=== PATIENT | male | born 1980 | race African-American/Black ===

== ENCOUNTER 2017-04-18 15:56 | Emergency (ER) | payer SELFPAY ==
[~2017-04-18] VITALS: Ht 182.9 cm; Wt 80.0 kg
[~2017-04-18 15:56] MED LIST: METH750T2 PO; NAPR40TA PO
[2017-04-18 16:14] VITALS: BP 135/85; PULSE 110; RESP 17; O2SAT 95
[2017-04-18 16:21] VITALS: TEMP 97.9
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
[2017-04-18] MEDS ORDERED: TETANUS/DIPHTHERIA TOXOID ADULT 0.5 ML VIAL IM ONE (16:30)
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
[2017-04-18 17:36] LABS: AUTOMATED NEUTROPHIL # 2.4 TH/MM3 (1.8-7.7); BASOPHIL % 0.6 % (0.0-2.0); EOSINOPHIL # 0.1 TH/MM3 (0-0.4); EOSINOPHIL % 1.5 % (0.0-4.0); HEMATOCRIT 41.9 % (39.0-51.0); HEMO FLAGS DIFF FINAL; LYMPH % 44.3 % (9.0-44.0); LYMPHOCYTE # 2.4 TH/MM3 (1.0-4.8); MEAN CELL VOLUME 99.2 FL (80.0-100.0); MEAN CORPUSCULAR HEMOGLOBIN 32.6 PG (27.0-34.0); MEAN CORPUSCULAR HGB CONC 32.9 % (32.0-36.0); MONO % 9.6 % (0.0-8.0); PLATELET COUNT 154 TH/MM3 (150-450); RED BLOOD COUNT 4.23 MIL/MM3 (4.50-5.90); WHITE BLOOD COUNT 5.5 TH/MM3 (4.0-11.0)
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
[2017-04-18 17:45] LABS: APTT (PATIENT) 27.3 SEC (24.3-30.1); PROTHROMBIN TIME - PATIENT 10.7 SEC (9.8-11.6)
[2017-04-18 18:08] LABS: BICARBONATE 28.7 MEQ/L (21.0-32.0)
[2017-04-18] MEDS ORDERED: ACETAMINOPHEN 500 MG CPLT PO ONE (18:45)
[2017-04-18 20:33] VITALS: BP 120/63; PULSE 81; RESP 16; O2SAT 96
[2017-04-19 00:10] VITALS: BP 95/53; PULSE 89; RESP 16; O2SAT 92
== END 2017-04-19 03:39 | disposition home or self-care (01) ==
LOC: NEPD 15:56
DX: S01.511A Laceration without foreign body of lip, initial encounter (principal); S01.81XA Laceration without foreign body of other part of head, initial encounter; F10.129 Alcohol abuse with intoxication, unspecified; I10 Essential (primary) hypertension; F17.200 Nicotine dependence, unspecified, uncomplicated; V18.4XXA Pedal cycle driver injured in noncollision transport accident in traffic accident, initial encounter
CPT/HCPCS: 12013; 70450; 70486; 71010; 72125; 72128; 72131; 73552; 73590; 80048; 80307; 85025; 85610; 85730; 90471; 90714

== ENCOUNTER 2017-05-19 19:00 | Inpatient (IN) | payer SELFPAY ==
[~2017-05-19] VITALS: Ht 182.9 cm; Wt 97.5 kg
[2017-05-19 00:40] VITALS: BP 139/99; PULSE 68; RESP 19; TEMP 96.1; O2SAT 97
[2017-05-19] MEDS ORDERED: SODIUM CHLORIDE 0.9% FLUSH 10 ML FLUSH IVF PRN (19:15)
[2017-05-19 19:20] VITALS: BP 188/91; PULSE 105; RESP 24; TEMP 98.4; O2SAT 91
--- NOTE | 2017-05-19 19:20 | PD ---
HPI Chief Complaint: SOB Time Seen by Provider: 19:13 Travel History International Travel<30 days: No Contact w/Intl Traveler<30days: No Traveled to known affect area: No History of Present Illness HPI C/O SOB ALL DAY, DENIES H/O ASTHMA, BUT DOES SMOKE 1PPD, SHARP PAIN DEVELOPED THIS MORNING WELL....DENIES ANY TRAUMA AT ALL. PFSH Past Medical History Diminished Hearing: No Hypertension: Yes Social History Alcohol Use: Yes (daily) Tobacco Use: Yes (1/2 PPD) Substance Use: No Allergies-Medications (Allergen,Severity, Reaction): Coded Allergies: Morphine (Verified Allergy, Severe, HIVES, 05/19/17) Reported Meds & Prescriptions Reported Meds & Active Scripts Active No Active Prescriptions or Reported Medications Review of Systems Except as stated in HPI: all other systems reviewed are Neg Cardiovascular: Positive: Chest Pain or Discomfort Respiratory: Positive: Cough, Shortness of Breath, Wheezing Physical Exam Narrative GENERAL: SKIN: Warm and dry. HEAD: Atraumatic. Normocephalic. EYES: Pupils equal and round. No scleral icterus. No injection or drainage. ENT: No nasal bleeding or discharge. Mucous membranes pink and moist. NECK: Trachea midline. No JVD. CARDIOVASCULAR: Regular rate and rhythm. RESPIRATORY: accessory muscle use. RIGHT SIDE NO LUNG SOUNDS, TRACHEA SHIFTED RIGHT, LEFT LUNG MILD WHEEZES BUT OTHERWISE GREAT TV GASTROINTESTINAL: Abdomen soft, non-tender, nondistended. MUSCULOSKELETAL: Extremities without clubbing, cyanosis, or edema. No obvious deformities. NEUROLOGICAL: Awake and alert. No obvious cranial nerve deficits. Motor grossly within normal limits. Five out of 5 muscle strength in the arms and legs. Normal speech. PSYCHIATRIC: Appropriate mood and affect; insight and judgment normal. Data Data Last Documented VS Vital Signs Date Time Temp Pulse Resp B/P Pulse Ox O2 Delivery O2 Flow Rate FiO2 05/19/17 21:05 22 05/19/17 20:44 92 153/92 97 Nasal Cannula 3 05/19/17 19:20 98.4 Orders Electrocardiogram (05/19/17 19:14) B-Type Natriuretic Peptide (05/19/17 19:14) Ckmb (Isoenzyme) Profile (05/19/17 19:14) Complete Blood Count With Diff (05/19/17 19:14) Comprehensive Metabolic Panel (05/19/17 19:14) D-Dimer (05/19/17 19:14) Prothrombin Time / Inr (Pt) (05/19/17 19:14) Act Partial Throm Time (Ptt) (05/19/17 19:14) Troponin I (05/19/17 19:14) Lipase (05/19/17 19:14) Chest, Single Ap (05/19/17 19:14) Ecg Monitoring (05/19/17 19:14) Bilateral Bp Monitoring (05/19/17 19:14) Iv Access Insert/Monitor (05/19/17 19:14) Oximetry (05/19/17 19:14) Oxygen Administration (05/19/17 19:14) Sodium Chloride 0.9% Flush (Ns Flush) (05/19/17 19:15) Lidocaine 2% Inj (Xylocaine 2% Inj) (05/19/17 19:25) Hydromorphone Pf Inj (Dilaudid Pf Inj) (05/19/17 19:41) Ondansetron Inj (Zofran Inj) (05/19/17 19:41) Lidocai-Epi 1%-1:100,000 Inj (Xylocaine- (05/19/17 19:48) Chest, Single Ap (05/19/17 ) CKMB (05/19/17 19:30) CKMB% (05/19/17 19:30) Hydromorphone Pf Inj (Dilaudid Pf Inj) (05/19/17 21:00) Ondansetron Inj (Zofran Inj) (05/19/17 21:00) Admit To Inpatient (05/19/17 ) Vital Signs (Adult) Q4H (05/19/17 21:07) Activity Oob With Assistance (05/19/17 21:07) Marketing Development Representative / Telemetry .CONTINUOUS (05/19/17 21:07) Diet Heart Healthy (05/20/17 Breakfast) Sodium Chloride 0.9% Flush (Ns Flush) (05/19/17 21:15) Sodium Chloride 0.9% Flush (Ns Flush) (05/20/17 09:00) Case Management Consult (05/19/17 21:07) Naloxone Inj (Narcan Inj) (05/19/17 21:15) Inpatient Certification (05/19/17 ) Consult Cardiothoracic Surgery (05/19/17 ) Consult Cardiothoracic Surgery (05/19/17 ) Admit Order (Ed Use Only) (05/19/17 21:14) (Hub Use Only)Inp Phy Cons/Ref (05/19/17 ) Labs Laboratory Tests Test 05/19/17 19:30 White Blood Count 7.2 TH/MM3 Red Blood Count 4.55 MIL/MM3 Hemoglobin 15.2 GM/DL Hematocrit 45.0 % Mean Corpuscular Volume 98.8 FL Mean Corpuscular Hemoglobin 33.5 PG Mean Corpuscular Hemoglobin 33.8 % Concent Red Cell Distribution Width 13.1 % Platelet Count 252 TH/MM3 Mean Platelet Volume 7.4 FL Neutrophils (%) (Auto) 50.3 % Lymphocytes (%) (Auto) 37.4 % Monocytes (%) (Auto) 9.4 % Eosinophils (%) (Auto) 2.3 % Basophils (%) (Auto) 0.6 % Neutrophils # (Auto) 3.6 TH/MM3 Lymphocytes # (Auto) 2.7 TH/MM3 Monocytes # (Auto) 0.7 TH/MM3 Eosinophils # (Auto) 0.2 TH/MM3 Basophils # (Auto) 0.0 TH/MM3 CBC Comment DIFF FINAL Differential Comment Prothrombin Time 11.2 SEC Prothromb Time International 1.0 RATIO Ratio Activated Partial 29.9 SEC Thromboplast Time D-Dimer Quantitative (PE/DVT) 1.01 MG/L FEU Sodium Level 136 MEQ/L Potassium Level 3.5 MEQ/L Chloride Level 103 MEQ/L Carbon Dioxide Level 22.0 MEQ/L Anion Gap 11 MEQ/L Blood Urea Nitrogen 9 MG/DL Creatinine 1.03 MG/DL Estimat Glomerular Filtration 97 ML/MIN Rate Random Glucose 100 MG/DL Calcium Level 8.7 MG/DL Total Bilirubin 0.9 MG/DL Aspartate Amino Transf 31 U/L (AST/SGOT) Alanine Aminotransferase 52 U/L (ALT/SGPT) Alkaline Phosphatase 71 U/L Total Creatine Kinase 193 U/L Creatine Kinase MB LESS THAN 0.5 NG/ML Troponin I LESS THAN 0.02 NG/ML B-Type Natriuretic Peptide 47 PG/ML Total Protein 8.3 GM/DL Albumin 3.8 GM/DL Lipase 97 U/L MDM Medical Decision Making Medical Screen Exam Complete: Yes Emergency Medical Condition: Yes Medical Record Reviewed: Yes Interpretation(s) NSR 97, LAE, NO STEMI PATTERN , J POINT ELEVATION NOTED Differential Diagnosis wheezing v pna v ptx v chest strain Narrative Course cxr c/w large ptx with tracheal deviation and pulse ox 90%, see chest tube insertion procedure, post procedure aeration heard, pulse ox improved to 95 and above, decreased pain...case d/w thoracic surgeon dr fernández consulted and will f /u, advised to admit to [facility] for formal admission Critical Care Narrative CRITICAL CARE NOTE: With evaluation of the patient, labs, EKG, receipt of radiologic studies, administration of medications, reevaluation the patient and discussion of the patient with the admitting physicians, the total critical care time was [45] minutes. Time to perform other separately billable procedures was not included in the critical care time. Procedures Procedure Narrative After the risks and benefits were discussed the following procedure was performed: CHEST TUBE THORACOSTOMY: The [right] chest was prepped with Betadine and sterilely draped. The area of the fifth intercostal interspace was infiltrated with 1% lidocaine plain. A [4] centimeter incision was made with a scalpel at the fifth intercostal space. Blunt dissection to the fourth intercostal interspace performed and the pleura was punctured with immediate long of air. Finger was inserted in the space and thoracostomy tube was placed, directed posteriorly and superiorly. Tube draining well. The thoracostomy tube was secured with suture. Sterile seal dressing placed. Patient tolerated procedure well. Diagnosis Primary Impression: Tension pneumothorax, spontaneous Admitting Information Admitting Physician Requests: Observation Scripts No Active Prescriptions or Reported Rajan Fallon MD May 19, 2017 19:20
[2017-05-19 19:22] VITALS: RESP 24
[2017-05-19] MEDS ORDERED: LIDOCAINE HCL 2% 50 ML VIAL ONE (19:25)
[2017-05-19] MEDS ORDERED: HYDROmorphone HCL PF 1 MG/ML VIAL ONE (19:41)
[2017-05-19] MEDS ORDERED: ONDANSETRON HCL 4 MG/2 ML VIAL ONE (19:41)
--- NOTE | 2017-05-19 19:41 | RADRPT ---
EXAM DATE/TIME: 05/19/2017 19:13 [facility] COMPARISON: CHEST SINGLE AP, April 18, 2017, 16:45. INDICATIONS : Right sided chest pain and shortness of breath. MEDICAL HISTORY : None. SURGICAL HISTORY : None. ENCOUNTER: Initial ACUITY: 1 day PAIN SCORE: 10/10 LOCATION: Right chest. FINDINGS: A single view of the chest demonstrates a large right-sided pneumothorax. There is mediastinal shift from right to left. There is some left basilar atelectasis. No left pneumothorax. CONCLUSION: 1. Large right pneumothorax. Patient is reportedly undergoing chest tube placement at this time. Kai Zurita MD on May 19, 2017 at 19:37 Board Certified Radiologist. This report was verified electronically.
[2017-05-19] MEDS ORDERED: LIDOCAINE 1%/EPINEPHrine 1:100,000 SOLN 30 ML VIAL ONE (19:48)
[2017-05-19 20:09] LABS: AUTOMATED NEUTROPHIL # 3.6 TH/MM3 (1.8-7.7); BASOPHIL % 0.6 % (0.0-2.0); EOSINOPHIL # 0.2 TH/MM3 (0-0.4); EOSINOPHIL % 2.3 % (0.0-4.0); HEMO FLAGS DIFF FINAL; LYMPH % 37.4 % (9.0-44.0); LYMPHOCYTE # 2.7 TH/MM3 (1.0-4.8); MEAN CELL VOLUME 98.8 FL (80.0-100.0); MEAN CORPUSCULAR HEMOGLOBIN 33.5 PG (27.0-34.0); MEAN CORPUSCULAR HGB CONC 33.8 % (32.0-36.0); MONO % 9.4 % (0.0-8.0); NEUT % 50.3 % (16.0-70.0); PLATELET COUNT 252 TH/MM3 (150-450); RED BLOOD COUNT 4.55 MIL/MM3 (4.50-5.90); RED CELL DISTRIBUTION WIDTH 13.1 % (11.6-17.2); WHITE BLOOD COUNT 7.2 TH/MM3 (4.0-11.0)
[2017-05-19 20:17] LABS: APTT (PATIENT) 29.9 SEC (24.3-30.1); PROTHROMBIN TIME - PATIENT 11.2 SEC (9.8-11.6)
[2017-05-19 20:37] LABS: ANION GAP 11 MEQ/L (5-15); AST (GOT) 31 U/L (15-37); BLOOD UREA NITROGEN 9 MG/DL (7-18); CHLORIDE 103 MEQ/L (98-107); GLOMERULAR FILTRATION RATE 97 ML/MIN (>89); POTASSIUM 3.5 MEQ/L (3.5-5.1); SODIUM (NA) 136 MEQ/L (136-145)
[2017-05-19 20:38] LABS: ALT (GPT) 52 U/L (12-78)
--- NOTE | 2017-05-19 20:40 | RADRPT ---
EXAM DATE/TIME: 05/19/2017 20:21 [facility] COMPARISON: CHEST SINGLE AP, May 19, 2017, 19:13. INDICATIONS : Post right chest tube placement. MEDICAL HISTORY : None. SURGICAL HISTORY : None. ENCOUNTER: Initial ACUITY: 1 day PAIN SCORE: 10/10 LOCATION: Right chest FINDINGS: A right-sided chest tube has been placed with near complete resolution of right pneumothorax. Mild ba silar atelectasis. Heart size mildly enlarged. CONCLUSION: 1. Placement of right chest tube with near-complete resolution of right pneumothorax. Kai Zurita MD on May 19, 2017 at 20:38 Board Certified Radiologist. This report was verified electronically.
[2017-05-19 20:42] LABS: ALKALINE PHOSPHATASE 71 U/L (45-117); CREATINE KINASE 193 U/L (39-308); TOTAL BILIRUBIN ADULT 0.9 MG/DL (0.2-1.0)
[2017-05-19 20:44] VITALS: BP 153/92; PULSE 92; RESP 20; O2SAT 97
[2017-05-19 20:54] LABS: CKMB LESS THAN 0.5 NG/ML (0.5-3.6)
[2017-05-19] MEDS ORDERED: ONDANSETRON HCL 4 MG/2 ML VIAL IV PUSH ONE (21:00)
[2017-05-19] MEDS ORDERED: HYDROmorphone HCL PF 1 MG/ML VIAL IV PUSH ONE (21:00)
[2017-05-19] MEDS ORDERED: NALOXONE HCL 0.4 MG/ML AMP IV PRN (21:15)
--- NOTE | 2017-05-19 23:12 | HHI.HP ---
HPI Service [facility] Primary Care Physician No Primary Care Physician Admission Diagnosis SPONTANEOUS RT PNEUMOTHORAX S/P CHEST TUBE PLACEMENT Diagnoses: (1) Tension pneumothorax, spontaneous Chief Complaint: Cough and shortness of breath Travel History International Travel<30 Days: No Contact w/Intl Traveler <30 Da: No Traveled to Known Affected Are: No History of Present Illness Written by Sue Rodriguez, acting as scribe for Dr. Burgos on 05/19/17 at 23:10. Patient seen in ED. Last night had a headache Took Advil and Tylenol pm and headache didn't improve Has had shortness of breath, cough, and painful respiration - right thorax starting today - patient reports pain still present but relieved with pain medications given in ED Denies any history of pneumothorax Denies fever, recent prolonged travel The patient is a cigarette smoker denies trauma Review of Systems Except as stated in HPI: all other systems reviewed are Neg Past Family Social History Past Medical History Hypertension - does not take any medication Denies CAD, asthma, breathing problems, strokes, seizures, thyroid problems . Past Surgical History Denies . Reported Medications Reported Meds & Active Scripts Active No Active Prescriptions or Reported Medications Allergies: Coded Allergies: Morphine (Verified Allergy, Severe, HIVES, 05/19/17) Active Ordered Medications Current Medications Sodium Chloride (NS Flush) 2 ml UNSCH PRN IVF FLUSH AFTER USING IV ACCESS; Start 05/19/17 at 19:15 Lidocaine HCl (Xylocaine 2% Inj) 50 ml STK-MED ONCE .ROUTE ; Start 05/19/17 at 19 :25; Stop 05/19/17 at 19:26; Status DC Hydromorphone HCl (Dilaudid Pf Inj) 1 mg STK-MED ONCE .ROUTE Last administered on 05/19/17 20:46; Start 05/19/17 at 19:41; Stop 05/19/17 at 19:42; Status DC Ondansetron HCl (Zofran Inj) 4 mg STK-MED ONCE .ROUTE Last administered on 20:46; Start 05/19/17 at 19:41; Stop 05/19/17 at 19:42; Status DC Lidocaine/ Epinephrine (Xylocaine-Epi 1%-1:100,000 Inj) 30 ml STK-MED ONCE .ROUTE ; Start 05/19/17 at 19:48; Stop 05/19/17 at 19:49; Status DC Hydromorphone HCl (Dilaudid Pf Inj) 1 mg ONCE ONCE IV PUSH Last administered on 05/19/17 21:06; Start 05/19/17 at 21:00; Stop 05/19/17 at 21:01; Status DC Ondansetron HCl (Zofran Inj) 4 mg ONCE ONCE IV PUSH Last administered on 21:05; Start 05/19/17 at 21:00; Stop 05/19/17 at 21:01; Status DC Sodium Chloride (NS Flush) 2 ml UNSCH PRN IV FLUSH FLUSH AFTER USING IV ACCESS ; Start 05/19/17 at 21:15 Sodium Chloride (NS Flush) 2 ml BID IV FLUSH ; Start 05/20/17 at 09:00 Naloxone HCl (Narcan Inj) 0.4 mg UNSCH PRN IV SEE LABEL COMMENTS; Start at 21:15 . Family History Grandmother with cancer -etiology unknown to patient Mother denies medical problems Father with ESRD on HD - "from being in the " . Social History Tobacco: smoked 1/2 PPD for 23 years Alcohol: social beer drinking Illicit Drugs: denies Has been released from correction - 2 - 3 months incarceration - recently released . Physical Exam Vital Signs Vital Signs Date Time Temp Pulse Resp B/P Pulse Ox O2 Delivery O2 Flow Rate FiO2 05/19/17 21:28 21 05/19/17 21:05 22 05/19/17 20:44 92 20 153/92 97 Nasal Cannula 3 05/19/17 19:22 24 95 Nasal Cannula 3 05/19/17 19:22 24 05/19/17 19:22 97 Nasal Cannula 3 05/19/17 19:20 98.4 105 24 188/91 91 Physical Exam GENERAL: This is a well-nourished, well-developed patient, in no apparent distress. SKIN: No rashes, ecchymoses or lesions. Cool and dry. Right thorax chest tube to pleurevac drainage. HEAD: Atraumatic. Normocephalic. EYES: No scleral icterus. No injection or drainage. ENT: Nose without bleeding, purulent drainage. NECK: Trachea midline. No JVD or lymphadenopathy. CARDIOVASCULAR: Regular rate and rhythm without murmurs, gallops, or rubs. RESPIRATORY: Clear to auscultation. Breath sounds equal bilaterally. No wheezes , rales, or rhonchi. GASTROINTESTINAL: Abdomen soft, non-tender, nondistended. No guarding. MUSCULOSKELETAL: Extremities without clubbing, cyanosis, or edema. No calf tenderness. NEUROLOGICAL: Awake and alert. Motor and sensory grossly within normal limits. Normal speech. . Laboratory Laboratory Tests Test 05/19/17 19:30 White Blood Count 7.2 Red Blood Count 4.55 Hemoglobin 15.2 Hematocrit 45.0 Mean Corpuscular Volume 98.8 Mean Corpuscular Hemoglobin 33.5 Mean Corpuscular Hemoglobin 33.8 Concent Red Cell Distribution Width 13.1 Platelet Count 252 Mean Platelet Volume 7.4 Neutrophils (%) (Auto) 50.3 Lymphocytes (%) (Auto) 37.4 Monocytes (%) (Auto) 9.4 Eosinophils (%) (Auto) 2.3 Basophils (%) (Auto) 0.6 Neutrophils # (Auto) 3.6 Lymphocytes # (Auto) 2.7 Monocytes # (Auto) 0.7 Eosinophils # (Auto) 0.2 Basophils # (Auto) 0.0 CBC Comment DIFF FINAL Differential Comment Prothrombin Time 11.2 Prothromb Time International 1.0 Ratio Activated Partial 29.9 Thromboplast Time D-Dimer Quantitative (PE/DVT) 1.01 Sodium Level 136 Potassium Level 3.5 Chloride Level 103 Carbon Dioxide Level 22.0 Anion Gap 11 Blood Urea Nitrogen 9 Creatinine 1.03 Estimat Glomerular Filtration 97 Rate Random Glucose 100 Calcium Level 8.7 Total Bilirubin 0.9 Aspartate Amino Transf 31 (AST/SGOT) Alanine Aminotransferase 52 (ALT/SGPT) Alkaline Phosphatase 71 Total Creatine Kinase 193 Creatine Kinase MB LESS THAN 0.5 Troponin I LESS THAN 0.02 B-Type Natriuretic Peptide 47 Total Protein 8.3 Albumin 3.8 Lipase 97 Result Diagram: 05/19/17192905/19/171929 Imaging Last Impressions Chest X-Ray 05/19/171913 Signed Impressions: Service Date/Time: Friday, May 19, 2017 19:13 - CONCLUSION: 1. Large right pneumothorax. Patient is reportedly undergoing chest tube placement at this time. Kai Zurita MD . Assessment and Plan Problem List: (1) Tension pneumothorax, spontaneous ICD Code: J93.0 Status: Acute Assessment and Plan Large Right Spontaneous Pneumothorax - s/p right chest tube - monitor CXR for resolution - consult CTS - assistance appreciated - pain medication: Dilaudid 0.5 mg IV q3h PRN pain DVT prophylaxis - SCDs/TEDs . This note was transcribed by [email or web address] [Sue Rodriguez]. I, Dr. Joaquim Burgos personally performed the history, physical exam, and medical decision making; and confirmed the accuracy of the information in the transcribed note. Authenticated by Dr. Joaquim Burgos on 05/19/17 at 23:10. Discussed Condition With Patient and ER physician . Physician Certification 2 Midnight Certification Type: Admission for Inpatient Services Order for Inpatient Services The services are ordered in accordance with Medicare regulations or non- Medicare payer requirements, as applicable. In the case of services not specified as inpatient-only, they are appropriately provided as inpatient services in accordance with the 2-midnight benchmark. Estimated LOS (days): 2 days is the estimated time the patient will need to remain in the hospital, assuming treatment plan goals are met and no additional complications. Post-Hospital Plan: [place] Sue Rodriguez May 19, 2017 23:12 Joaquim Burgos MD May 20, 2017 08:02
[2017-05-19] MEDS: HYDROmorphone HCL PF 1 MG/ML VIAL IV PUSH PRN (23:54)
[2017-05-19] MEDS: SODIUM CHLORIDE 0.9% FLUSH 10 ML FLUSH IV FLUSH PRN (23:59)
[2017-05-20] VITALS (7 sets, daily range): BP systolic 128–156; BP diastolic 84–100; PULSE 60–69; RESP 18–19; TEMP 96–96.8; O2SAT 95–97
[2017-05-20] MEDS: HYDROmorphone HCL PF 1 MG/ML VIAL IV PUSH PRN ×5 (04:00→21:15)
--- NOTE | 2017-05-20 09:42 | RADRPT ---
EXAM DATE/TIME: 05/20/2017 09:18 [facility] COMPARISON: CHEST SINGLE AP, May 19, 2017, 20:21. INDICATIONS : Spontaneous pneumothorax, rule out bullous emphysema. RADIATION DOSE: 5.79 CTDIvol (mGy) MEDICAL HISTORY : Hypertension. SURGICAL HISTORY : None. ENCOUNTER: Initial ACUITY: 1 day PAIN SCALE: 0/10 LOCATION: Right chest TECHNIQUE: Volumetric scanning of the chest was performed. Using automated exposure control and adjustment of t he mA and/or kV according to patient size, radiation dose was kept as low as reasonably achievable to obtain optimal diagnostic quality images. DICOM format image data is available electronically for r eview and comparison. Follow-up recommendations for incidentally detected pulmonary nodules are based at a minimum on nodul e size and patient risk factors according to Fleischner Society Guidelines. FINDINGS: LUNGS: There is evidence of bullous emphysema in both apices. Otherwise, lungs are clear and well-aerated. T here is some atelectasis in both lung bases. There is a right-sided chest tube with only a trace of a right pneumothorax. There is no evidence of a left-sided pneumothorax. PLEURAE: There is no pleural thickening or pleural effusion. MEDIASTINUM: The heart and great vessels demonstrate no acute abnormality. There is no mediastinal or hilar lymph adenopathy. AXILLAE: Within normal limits. No lymphadenopathy. MUSCULOSKELETAL: Within normal limits for patient age. MISCELLANEOUS: The visualized upper abdominal organs demonstrate no acute abnormality. Splenic granulomas. CONCLUSION: 1. There is evidence of bullous emphysema in both apices. 2. Right-sided chest tube in good position with only a trace of a right pneumothorax. 3. Bibasilar atelectasis. Maynor Natarajan MD on May 20, 2017 at 9:38 Board Certified Radiologist. This report was verified electronically.
[2017-05-20] MEDS: SODIUM CHLORIDE 0.9% FLUSH 10 ML FLUSH IV FLUSH SCH ×2 (09:59→21:16)
[2017-05-20] MEDS: SODIUM CHLORIDE 0.9% FLUSH 10 ML FLUSH IV FLUSH PRN ×2 (10:47→14:11)
--- NOTE | 2017-05-20 11:13 | EKG ---
Date Performed: 05/19/2017 Time Performed: 19:15:53 PTAGE: 37 years EKG: Sinus rhythm LEFT ATRIAL ENLARGEMENT MARKED RIGHT AXIS DEVIATION NONSPECIFIC ST ELEVATION ABNORMAL ECG NO PREVIOUS TRACING DOCTOR: Jose Alfredo Sims Interpretating Date/Time 05/20/2017 11:12:21
[2017-05-20] MEDS ORDERED: HYDROmorphone HCL 2 MG TAB PO PRN (14:15)
[2017-05-20] MEDS ORDERED: SENNOSIDES 8.6 MG TAB PO PRN (14:15)
[2017-05-20] MEDS ORDERED: ACETAMINOPHEN 325 MG TAB PO PRN ×2 (14:15)
[2017-05-20] MEDS ORDERED: ONDANSETRON HCL 4 MG/2 ML VIAL IVP PRN (14:15)
[2017-05-20] MEDS ORDERED: RESP: ALBUTEROL 2.5 MG/3 ML NEB (PRN) NEB (14:15)
--- NOTE | 2017-05-20 14:19 | HHI.PR ---
Subjective Remarks Follow-up pneumothorax. Improving pain. Denies shortness of breath. Still on 4 L nasal cannula. Discussed with RN, wean and discontinue oxygen keep saturation at least 92%. Objective Vitals Vital Signs Date Time Temp Pulse Resp B/P Pulse Ox O2 Delivery O2 Flow Rate FiO2 05/20/17 11:29 96.4 62 18 140/94 97 05/20/17 07:25 96.0 62 18 151/100 97 05/20/17 04:20 96.3 63 19 150/89 97 05/19/17 21:28 21 05/19/17 21:05 22 05/19/17 20:44 92 20 153/92 97 Nasal Cannula 3 05/19/17 19:22 24 95 Nasal Cannula 3 05/19/17 19:22 24 05/19/17 19:22 97 Nasal Cannula 3 05/19/17 19:20 98.4 105 24 188/91 91 I/O 05/19/17 05/19/17 05/19/17 05/20/17 05/20/17 05/20/17 07:00 15:00 23:00 07:00 15:00 23:00 Intake Total 240 ml Output Total 0 ml 0 ml 0 ml Balance 0 ml 240 ml 0 ml Intake Oral 240 ml Output Chest Tube Drainage Total 0 ml 0 ml 0 ml # Voids 1 # Bowel Movements 0 Result Diagram: 05/19/17 19305/19/17 193 Imaging Last Impressions Chest CT 05/20/17 0000 Signed Impressions: Service Date/Time: May 09:18 - CONCLUSION: 1. There is evidence of bullous emphysema in both apices. 2. Right-sided chest tube in good position with only a trace of a right pneumothorax. 3. Bibasilar atelectasis. Maynor Natarajan MD Chest X-Ray 05/19/17 191 Signed Impressions: Service Date/Time: Friday, May 19, 2017 19:13 - CONCLUSION: 1. Large right pneumothorax. Patient is reportedly undergoing chest tube placement at this time. Kai Zurita MD Objective Remarks GENERAL: Well-developed, well-nourished in no distress on 4 L nasal cannula SKIN: Warm and dry. EYES: Pupils equal and round. No scleral icterus. No injection or drainage. CARDIOVASCULAR: Regular rate and rhythm. RESPIRATORY: No accessory muscle use. Clear to auscultation. Breath sounds equal bilaterally. Chest tube in place GASTROINTESTINAL: Abdomen soft, non-tender, nondistended. MUSCULOSKELETAL: Extremities without clubbing, cyanosis, or edema. No obvious deformities. NEUROLOGICAL: Awake and alert. No obvious cranial nerve deficits. Motor grossly within normal limits. Five out of 5 muscle strength in the arms and legs. Normal speech. A/P Problem List: (1) Tension pneumothorax, spontaneous ICD Code: J93.0 Status: Acute Assessment and Plan Large Right Spontaneous Pneumothorax. Chest CT shows bolus emphysema bilateral apices - s/p right chest tube - monitor CXR for resolution - consult CTS - assistance appreciated - pain management with by mouth and IV Dilaudid Hypertension. Worse secondary to pain. We'll monitor consider starting anti- hypertensives DVT prophylaxis - SCDs/TEDs Kwasi Velazquez MD May 20, 2017 14:19
[2017-05-20] MEDS ORDERED: PILL SPLITTER OTHER PRN (15:30)
[2017-05-20] MEDS: HYDROmorphone HCL 2 MG TAB PO PRN (17:50)
[2017-05-20] MEDS: DOCUSATE SODIUM 50 MG/SENNA 8.6 MG TAB PO SCH (21:15)
[2017-05-21] VITALS (7 sets, daily range): BP systolic 114–155; BP diastolic 76–88; PULSE 66–81; RESP 16–18; TEMP 96.2–97.7; O2SAT 94–97
[2017-05-21] MEDS: HYDROmorphone HCL 2 MG TAB PO PRN ×4 (00:49→22:14)
[2017-05-21] MEDS: HYDROmorphone HCL PF 1 MG/ML VIAL IV PUSH PRN ×3 (06:53→23:31)
--- NOTE | 2017-05-21 07:26 | MB ---
cc: VINICIO CINTRON MD DATE OF CONSULTATION: 05/20/2017 1978 HISTORY OF PRESENT ILLNESS A 37-year-old male admitted via the emergency department complaining of a headache two nights ago, woke up yesterday morning with pleuritic right-sided chest pain, shortness of breath, noticed that he was trying to bend over and put on his clothes, he basically stayed at home, laid around the house, waited until his came home where she brought him into the emergency department yesterday evening. He was found to have a large right spontaneous pneumothorax. They placed, it appears to be a #28 chest tube into the right lateral chest wall with re-expansion of the lung. We were consulted for the spontaneous pneumothorax. We did a CT of the chest which showed evidence of bullous emphysema in both apices. PAST MEDICAL HISTORY Hypertension but does not take any medication. PAST SURGICAL HISTORY No past surgical history. ALLERGIES He is allergic to MORPHINE. MEDICATION He has no home medications. FAMILY HISTORY Mother is healthy. Father from complications of end-stage renal disease. SOCIAL HISTORY The patient is , smokes a half-a-pack for the last 23 years. Occasional beer. No illicit drugs. He was recently incarcerated for 2-3 months back in November, they did a chest x-ray at that time. Had TB negative at that time. REVIEW OF SYSTEMS GENERAL: No night sweats, fever, heat and cold intolerance. SKIN: No psoriasis, itching or hives. HEENT: No blurred vision, hearing loss. RESPIRATORY: Positive for shortness of breath. CARDIOVASCULAR: Pleuritic-type chest pain. GASTROINTESTINAL: No diarrhea, vomiting. GENITOURINARY: No burning, frequency, urgency. 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 PHYSICAL EXAMINATION VITAL SIGNS: Blood pressure 140/90, heart rate 62, temperature max 96.4. GENERAL: Patient is awake, alert, in no acute distress on room air. HEENT: Head is normocephalic, atraumatic. Pupils equal and reactive. Oral mucosa pink, moist. NECK: Supple. No JVD. HEART: Heart sounds S1-S2, regular rate and rhythm. No audible rubs or gallops. LUNGS: Clear to auscultation. He has a right-sided chest tube to wall suction with no air leak, very minimal drainage. ABDOMEN: Soft, flat, nontender. No masses or organomegaly. EXTREMITIES: No cyanosis, clubbing or edema. LABORATORY FINDINGS Shows hemoglobin 15, hematocrit of 45, white cell count 7.2, platelet count 252. Sodium 136, potassium 3.5, BUN of 9, creatinine 1.03, troponin less than 0.02, INR 1.0. IMAGING STUDIES Radiological exams as above. The repeat chest x-ray showed resolution of the spontaneous pneumothorax. IMPRESSION This is a 37-year-old male with spontaneous right pneumothorax status post chest tube insertion emergently in the emergency department with near complete resolution of the pneumothorax. His CT scan did show bilateral bullous emphysema in both apices with blebs, a rather large one on the right apice. There is only a trace of right pneumothorax with the chest tube in place. The films will be evaluated by Dr. Cintron and evaluated for possible thoracotomy and bleb resection if this does not resolve. Risk factors include smoking which the patient needs to have smoking cessation and further discussion and planning per Dr. Cintron. Dictated by: NEETA Ferreira Vinicio ENGLISH /1:34 PM /7:24 AM
[2017-05-21] MEDS: MAGNESIUM HYDROXIDE SUSP 30 ML CUP PO PRN (09:52)
[2017-05-21] MEDS: DOCUSATE SODIUM 50 MG/SENNA 8.6 MG TAB PO SCH ×2 (09:53→19:45)
[2017-05-21] MEDS: LACTULOSE SYRUP 20 GM/30 ML CUP PO PRN (09:53)
[2017-05-21] MEDS: SODIUM CHLORIDE 0.9% FLUSH 10 ML FLUSH IV FLUSH SCH ×2 (09:53→21:00)
--- NOTE | 2017-05-21 12:23 | HHI.PR ---
Subjective Remarks F/U PTX. Pain controlled for surgery next week Objective Vitals Vital Signs Date Time Temp Pulse Resp B/P Pulse Ox O2 Delivery O2 Flow Rate FiO2 05/21/17 11:30 96.5 73 18 132/79 96 05/21/17 07:32 96.3 66 18 120/77 94 05/21/17 04:45 96.2 68 18 114/76 94 05/20/17 23:40 96.8 67 19 128/84 95 05/20/17 20:55 96.7 69 18 143/88 97 05/20/17 16:00 96.4 60 18 156/92 97 I/O 05/20/17 05/20/17 05/20/17 05/21/17 05/21/17 05/21/17 07:00 15:00 23:00 07:00 15:00 23:00 Intake Total 240 ml 600 ml 480 ml 240 ml Output Total 0 ml 0 ml 0 ml 475 ml Balance 240 ml 600 ml 480 ml -235 ml Intake Oral 240 ml 600 ml 480 ml 240 ml Output Urine Total 475 ml Chest Tube Drainage Total 0 ml 0 ml 0 ml 0 ml # Voids 1 2 1 # Bowel Movements 0 0 0 0 Result Diagram: 05/19/17192905/19/171929 Objective Remarks GENERAL: Well-developed, well-nourished in no distress on nasal cannula SKIN: Warm and dry. EYES: Pupils equal and round. No scleral icterus. No injection or drainage. CARDIOVASCULAR: Regular rate and rhythm. RESPIRATORY: No accessory muscle use. Clear to auscultation. Breath sounds equal bilaterally. Chest tube in place GASTROINTESTINAL: Abdomen soft, non-tender, nondistended. MUSCULOSKELETAL: Extremities without clubbing, cyanosis, or edema. No obvious deformities. NEUROLOGICAL: Awake and alert. No obvious cranial nerve deficits. Motor grossly within normal limits. Five out of 5 muscle strength in the arms and legs. Normal speech. A/P Problem List: (1) Tension pneumothorax, spontaneous ICD Code: J93.0 Status: Acute Assessment and Plan Large Right Spontaneous Pneumothorax. Chest CT shows bolus emphysema bilateral apices - s/p right chest tube - monitor CXR for resolution - pt scheduled for right VATS , bleb resection and talc pleurodesis on Wednesday - pain management with by mouth and IV Dilaudid - tobacco cessation Hypertension. Worse secondary to pain. We'll monitor consider starting anti- hypertensives DVT prophylaxis - Lashaun/Kwasi Vargas MD May 21, 2017 12:23
--- NOTE | 2017-05-21 15:32 | PD.CAR.PN ---
CVT Progress Note Subjective/Hospital Course: 37/ male with admission for chest pain , SOB + spontaneous right pneumothorax/ no air leak noted in pleuravac, chest tube to water seal. . CT chest noted + bullous emphysema pt scheduled for right VATS , bleb resection and talc pleurodesis on Thursday 05/24 PMH: tobacco abuse Objective: GENERAL: SKIN: Warm and dry. HEAD: Normocephalic. EYES: No scleral icterus. No injection or drainage. NECK: Supple, trachea midline. No JVD or lymphadenopathy. CARDIOVASCULAR: Regular rate and rhythm without murmurs, gallops, or rubs. RESPIRATORY: Breath sounds equal bilaterally. No accessory muscle use. chest tube to water seal , no air leak GASTROINTESTINAL: Abdomen soft, non-tender, nondistended. MUSCULOSKELETAL: No cyanosis, or edema. BACK: Nontender without obvious deformity. No CVA tenderness. Vital Signs Date Time Temp Pulse Resp B/P Pulse Ox O2 Delivery O2 Flow Rate FiO2 05/21/17 11:30 96.5 73 18 132/79 96 05/21/17 07:32 96.3 66 18 120/77 94 05/21/17 04:45 96.2 68 18 114/76 94 05/20/17 23:40 96.8 67 19 128/84 95 05/20/17 20:55 96.7 69 18 143/88 97 05/20/17 16:00 96.4 60 18 156/92 97 Result Diagram: 05/19/17192905/19/171929 (1) Tension pneumothorax, spontaneous Plan: s/p chest tube insertion in ED keep chest tube in , plan for surgery on Wednesday Pat Quintana May 21, 2017 15:32
[2017-05-21] MEDS ORDERED: CEFAZOLIN INJ 500 MG in SODIUM CHLORIDE 0.9% IRR BTL 500 ML IRRIGATION SCH (15:45)
[2017-05-21] MEDS ORDERED: ceFAZolin 2 GM PREMIX 50 ML IV SCH (15:45)
[2017-05-21] MEDS ORDERED: SODIUM CHLORIDE 0.9% FLUSH 10 ML FLUSH IV FLUSH PRN (15:45)
[2017-05-21] MEDS ORDERED: CHLORHEXIDINE GLUCONATE 4% SOLN 120 ML BTL TOPICAL SCH (15:45)
[2017-05-21 20:33] LABS: BLOOD, URINE TRACE (NEG); COMMENT (UR) CULTURE INDICATED; CULTURE IF INDICATED CULTURE INDICATED; GLUCOSE,URINE NEG (NEG); KETONE, URINE TRACE mg/dL (NEG); MUCUS URINE FEW /lpf (OCC); NITRITE,URINE NEG (NEG); SQUAMOUS EPITHELIAL CELL URINE 7 /hpf (0-5); URINE COLOR YELLOW (YELLW/STRAW)
[2017-05-22] VITALS: BP 142/87; PULSE 73; RESP 16; TEMP 96.2; O2SAT 99
[2017-05-22] MEDS: HYDROmorphone HCL 2 MG TAB PO PRN ×3 (02:18→09:37)
[2017-05-22 04:00] VITALS: BP 167/94; PULSE 78; RESP 17; TEMP 97.5; O2SAT 97
[2017-05-22] MEDS: HYDROmorphone HCL PF 1 MG/ML VIAL IV PUSH PRN ×6 (04:01→23:36)
[2017-05-22 08:00] VITALS: BP 147/91; PULSE 98; RESP 18; TEMP 96.5; O2SAT 96
[2017-05-22] MEDS: SODIUM CHLORIDE 0.9% FLUSH 10 ML FLUSH IV FLUSH SCH ×2 (09:00→19:29)
[2017-05-22] MEDS: DOCUSATE SODIUM 50 MG/SENNA 8.6 MG TAB PO SCH ×2 (09:37→19:28)
[2017-05-22] MEDS ORDERED: ACETAMINOPHEN/HYDROcodone 325 MG/5 MG TAB PO PRN (11:30)
--- NOTE | 2017-05-22 11:38 | HHI.PR ---
Subjective Remarks Follow-up pneumothorax. Complaining of pruritus denies shortness of breath or wheezing. Believes it's from Dilaudid same reaction when he receives morphine sulfate. States he can tolerate Lortab. Counseled regarding narcotics. Discussed with RN Objective Vitals Vital Signs Date Time Temp Pulse Resp B/P Pulse Ox O2 Delivery O2 Flow Rate FiO2 05/22/17 04:00 97.5 78 17 167/94 97 05/22/17 00:00 96.2 73 16 142/87 99 05/21/17 22:09 77 05/21/17 20:00 97.7 81 16 155/86 97 05/21/17 16:00 97.1 73 18 145/88 97 I/O 05/21/17 05/21/17 05/21/17 05/22/17 05/22/17 05/22/17 07:00 15:00 23:00 07:00 15:00 23:00 Intake Total 240 ml 720 ml 480 ml Output Total 475 ml 10 ml 6 ml 4 ml Balance -235 ml -10 ml 714 ml 476 ml Intake Oral 240 ml 720 ml 480 ml Output Urine Total 475 ml Chest Tube Drainage Total 0 ml 10 ml 6 ml 4 ml # Voids 3 2 # Bowel Movements 0 Result Diagram: 05/19/17192905/19/171929 Objective Remarks GENERAL: Well-developed, well-nourished in no distress SKIN: Warm and dry. No rash EYES: Pupils equal and round. No scleral icterus. No injection or drainage. CARDIOVASCULAR: Regular rate and rhythm. RESPIRATORY: No accessory muscle use. Clear to auscultation. Breath sounds equal bilaterally. Chest tube in place GASTROINTESTINAL: Abdomen soft, non-tender, nondistended. MUSCULOSKELETAL: Extremities without clubbing, cyanosis, or edema. No obvious deformities. NEUROLOGICAL: Awake and alert. No obvious cranial nerve deficits. Motor grossly within normal limits. Five out of 5 muscle strength in the arms and legs. Normal speech. A/P Problem List: (1) Tension pneumothorax, spontaneous ICD Code: J93.0 Status: Acute Assessment and Plan Large Right Spontaneous Pneumothorax. Chest CT shows bolus emphysema bilateral apices - s/p right chest tube - monitor CXR for resolution - pt scheduled for right VATS , bleb resection and talc pleurodesis on Wednesday - pain management with IV Dilaudid for breakthrough pain. Start Lortab - tobacco cessation Pruritus secondary to Dilaudid. No respiratory involvement. Benadryl as needed. Monitor. Hypertension. Worse secondary to pain. We'll monitor consider starting anti- hypertensives DVT prophylaxis - SCDs/TEDKwasi Mai MD May 22, 2017 11:38
[2017-05-22] MEDS: diphenhydrAMINE HCL 25 MG CAP PO PRN ×3 (12:05→23:35)
[2017-05-22] MEDS: ACETAMINOPHEN/HYDROcodone 325 MG/10 MG TAB PO PRN ×3 (14:07→22:32)
[2017-05-22 16:00] VITALS: BP 140/87; PULSE 77; RESP 18; TEMP 97.8; O2SAT 96
[2017-05-22] MEDS: LACTULOSE SYRUP 20 GM/30 ML CUP PO PRN (19:28)
[2017-05-22] MEDS: MAGNESIUM HYDROXIDE SUSP 30 ML CUP PO PRN (19:28)
[2017-05-22 20:04] VITALS: BP 182/76; PULSE 88; RESP 19; TEMP 97.1; O2SAT 93
[2017-05-22 23:48] VITALS: BP 149/100; PULSE 74; RESP 19; TEMP 98.3; O2SAT 98
[2017-05-23] MEDS: ACETAMINOPHEN/HYDROcodone 325 MG/10 MG TAB PO PRN ×7 (02:38→22:52)
[2017-05-23] MEDS: diphenhydrAMINE HCL 25 MG CAP PO PRN ×6 (03:35→22:54)
[2017-05-23] MEDS: HYDROmorphone HCL PF 1 MG/ML VIAL IV PUSH PRN ×6 (03:35→23:47)
[2017-05-23 04:24] VITALS: BP 139/88; PULSE 82; RESP 18; TEMP 97.4; O2SAT 96
[2017-05-23 06:41] LABS: PROTHROMBIN TIME - PATIENT 10.5 SEC (9.8-11.6)
[2017-05-23 08:00] VITALS: BP 131/89; PULSE 102; RESP 18; TEMP 97.8; O2SAT 98
[2017-05-23] MEDS: SODIUM CHLORIDE 0.9% FLUSH 10 ML FLUSH IV FLUSH SCH ×2 (08:19→19:55)
[2017-05-23] MEDS: DOCUSATE SODIUM 50 MG/SENNA 8.6 MG TAB PO SCH ×2 (08:19→21:00)
--- NOTE | 2017-05-23 10:12 | HHI.PR ---
Subjective Remarks Follow-up pneumothorax. Doing well with chest tube. Improved pruritus denies shortness of breath. Pain under control Objective Vitals Vital Signs Date Time Temp Pulse Resp B/P Pulse Ox O2 Delivery O2 Flow Rate FiO2 05/23/17 04:24 97.4 82 18 139/88 96 05/22/17 23:48 98.3 74 19 149/100 98 05/22/17 20:04 97.1 88 19 182/76 93 05/22/17 16:00 97.8 77 18 140/87 96 I/O 05/22/17 05/22/17 05/22/17 05/23/17 05/23/17 05/23/17 07:00 15:00 23:00 07:00 15:00 23:00 Intake Total 480 ml 960 ml 720 ml 720 ml Output Total 4 ml 16 ml 6 ml Balance 476 ml 944 ml 720 ml 714 ml Intake Oral 480 ml 960 ml 720 ml 720 ml Chest Tube Drainage Total 4 ml 16 ml 6 ml # Voids 2 5 4 1 # Bowel Movements 0 0 3 Result Diagram: 05/19/17192905/19/171929 Objective Remarks GENERAL: Well-developed, well-nourished in no distress SKIN: Warm and dry. No rash EYES: Pupils equal and round. No scleral icterus. No injection or drainage. CARDIOVASCULAR: Regular rate and rhythm. RESPIRATORY: No accessory muscle use. Clear to auscultation. Breath sounds equal bilaterally. Chest tube in place right chest wall GASTROINTESTINAL: Abdomen soft, non-tender, nondistended. MUSCULOSKELETAL: Extremities without clubbing, cyanosis, or edema. No obvious deformities. NEUROLOGICAL: Awake and alert. No obvious cranial nerve deficits. Motor grossly within normal limits. Five out of 5 muscle strength in the arms and legs. Normal speech. Procedures Chest tube insertion right chest wall secondary to pneumothorax A/P Problem List: (1) Tension pneumothorax, spontaneous ICD Code: J93.0 Status: Acute Assessment and Plan Large Right Spontaneous Pneumothorax. Chest CT shows bolus emphysema bilateral apices - s/p right chest tube - monitor CXR for resolution - pt scheduled for right VATS , bleb resection and talc pleurodesis on Wednesday tomorrow - pain management with Lortab and IV Dilaudid for breakthrough pain. - tobacco cessation Pruritus secondary to Dilaudid. No respiratory involvement. Improved. Benadryl as needed. Monitor. Hypertension. Worse secondary to pain. We'll monitor consider starting anti- hypertensives. DVT prophylaxis - SCDs/TEDs Kwasi Velazquez MD May 23, 2017 10:12
[2017-05-23 16:00] VITALS: BP 150/93; PULSE 85; RESP 18; TEMP 98.6; O2SAT 97
[2017-05-23 20:00] VITALS: BP 137/83; PULSE 80; RESP 16; TEMP 98.3; O2SAT 95
[2017-05-24] VITALS (9 sets, daily range): BP systolic 133–147; BP diastolic 87–97; PULSE 70–136; RESP 18–21; TEMP 97.4–98.4; O2SAT 94–97
[2017-05-24] MEDS: HYDROmorphone HCL PF 1 MG/ML VIAL IV PUSH PRN ×4 (04:17→21:08)
[2017-05-24] MEDS: diphenhydrAMINE HCL 25 MG CAP PO PRN ×2 (04:26→07:54)
[2017-05-24] MEDS ORDERED: ACETAMINOPHEN 1000 MG/100 ML VIAL IV ONE (06:39)
[2017-05-24] MEDS ORDERED: SUGAMMADEX SODIUM 200 MG/2 ML VIAL IV PUSH ONE ×2 (06:39)
[2017-05-24] MEDS ORDERED: BUPIVACAINE HCL PF 0.5% 30 ML VIAL ONE (07:26)
[2017-05-24] MEDS: DOCUSATE SODIUM 50 MG/SENNA 8.6 MG TAB PO SCH (07:51)
[2017-05-24] MEDS: SODIUM CHLORIDE 0.9% FLUSH 10 ML FLUSH IV FLUSH SCH ×2 (07:58→21:00)
[2017-05-24] MEDS: ACETAMINOPHEN/HYDROcodone 325 MG/10 MG TAB PO PRN ×3 (08:39→23:48)
--- NOTE | 2017-05-24 08:53 | HHI.PR ---
Subjective Remarks Follow-up pneumothorax. Upset was not getting pain medicines on time. Discussed with RN. No shortness of breath Objective Vitals Vital Signs Date Time Temp Pulse Resp B/P Pulse Ox O2 Delivery O2 Flow Rate FiO2 05/24/17 04:00 97.4 70 18 147/97 94 05/24/17 00:00 97.7 79 18 137/89 95 05/23/17 23:50 18 05/23/17 20:00 98.3 80 16 137/83 95 05/23/17 16:00 98.6 85 18 150/93 97 I/O 05/23/17 05/23/17 05/23/17 05/24/17 05/24/17 05/24/17 07:00 15:00 23:00 07:00 15:00 23:00 Intake Total 720 ml 1200 ml Output Total 6 ml 455 ml 20 ml Balance 714 ml 1200 ml -455 ml -20 ml Intake Oral 720 ml 1200 ml Output Urine Total 425 ml Chest Tube Drainage Total 6 ml 30 ml 20 ml # Voids 1 5 3 # Bowel Movements 3 0 Objective Remarks GENERAL: Well-developed, well-nourished in no distress SKIN: Warm and dry. No rash EYES: Pupils equal and round. No scleral icterus. No injection or drainage. CARDIOVASCULAR: Regular rate and rhythm. RESPIRATORY: No accessory muscle use. Clear to auscultation. Breath sounds equal bilaterally. Chest tube in place right chest wall GASTROINTESTINAL: Abdomen soft, non-tender, nondistended. MUSCULOSKELETAL: Extremities without clubbing, cyanosis, or edema. No obvious deformities. NEUROLOGICAL: Awake and alert. No obvious cranial nerve deficits. Motor grossly within normal limits. Five out of 5 muscle strength in the arms and legs. Normal speech. Nonfocal Procedures Chest tube insertion right chest wall secondary to pneumothorax A/P Problem List: (1) Tension pneumothorax, spontaneous ICD Code: J93.0 Status: Acute Assessment and Plan Large Right Spontaneous Pneumothorax. Chest CT shows bolus emphysema bilateral apices - s/p right chest tube - pt scheduled for right VATS , bleb resection and talc pleurodesis today. Start IV fluids - pain management with Lortab and IV Dilaudid for breakthrough pain. - tobacco cessation Pruritus secondary to Dilaudid. No respiratory involvement. Improved. Benadryl as needed. Monitor. Hypertension. Worse secondary to pain. We'll monitor consider starting anti- hypertensives. DVT prophylaxis - SCDs/TEDs Discharge Planning Not ready for discharge Kwasi Velazquez MD May 24, 2017 08:53
[2017-05-24] MEDS: NS + KCL 20 MEQ INJ 1,000 ML IV SCH ×2 (10:59→17:22)
[2017-05-24] MEDS ORDERED: fentaNYL CITRATE 250 MCG/5 ML AMP ONE ×2 (11:39→15:04)
[2017-05-24] MEDS ORDERED: HYDROmorphone HCL PF 2 MG/ML VIAL ONE ×2 (11:39→12:25)
[2017-05-24] MEDS ORDERED: PHENYLEPH/NS 1000 MCG/10 ML SYR IV ONE (12:00)
[2017-05-24] MEDS ORDERED: NEOSTIGMINE 3 MG/3 ML SYR IV ONE (12:00)
[2017-05-24] MEDS ORDERED: ONDANSETRON HCL 4 MG/2 ML VIAL IV PUSH ONE (12:00)
[2017-05-24] MEDS ORDERED: PROPOFOL 200 MG/20 ML AMP IV ONE (12:00)
[2017-05-24] MEDS ORDERED: RESP: ALBUTEROL 2.5 MG/3 ML NEB (PRN) NEB (14:15)
[2017-05-24] MEDS ORDERED: ACETAMINOPHEN 325 MG TAB PO PRN (14:15)
[2017-05-24] MEDS ORDERED: MAGNESIUM HYDROXIDE SUSP 30 ML CUP PO PRN (14:15)
[2017-05-24] MEDS ORDERED: Post-op Orders (for Pharmacy) MISC OTHER ONE (14:15)
[2017-05-24] MEDS ORDERED: GLUCAGON 1 MG/ML VIAL IV PRN (14:15)
[2017-05-24] MEDS ORDERED: MISC INFORMATION OTHER ONE (14:15)
[2017-05-24] MEDS ORDERED: DEXTROSE 50% IN WATER 50 ML VIAL(D50) IV PRN (14:15)
[2017-05-24] MEDS ORDERED: ONDANSETRON HCL 4 MG/2 ML VIAL IV PUSH PRN (14:15)
[2017-05-24] MEDS ORDERED: oxyCODONE/ACETAMINOPHEN 5 MG/325 MG TAB PO PRN (14:15)
--- NOTE | 2017-05-24 14:30 | PD.OP ---
cc: Kinjal Hernández MD Operative Report Date of Surgery: May 24, 2017 Preoperative Diagnosis: (1) Tension pneumothorax, spontaneous Postoperative Diagnosis: same Procedure: Right thoracoscopic exploration, apical bleb resection, and mechanical pleuradesis Anesthesia: Dr. Hurt Surgeon: Kinjal Hernández Stone Mason(s): Rosi Spears Operation and Findings: After adequate general anesthesia the patient was placed in the left lateral decubitus position and the right chest was prepped and draped in usual manner. A small anterior port incision was performed and electrocautery was used to obtain hemostasis and carry the dissection down through the fascia. A port was placed followed by the camera. Visualization was very good. A posterior and lateral port were positioned at ~6th intercostal space. Electrocautery was used to lyse adhesions. Exploration of the right hemithorax was significant for an apical bleb . This was resected using a surgical stapler and the specimen submitted to Pathology. A mechanical pleuradesis was performed at the apex. A 28F right angle chest tube was positioned through the anterior port, and secured with a 0-silk suture. The lung was ventilated and no significant air leaks were found. The subcutaneous tissues of the posterior port was approximated running 2-0 Vicryl suture and the skin was approximated using running 4-0 Monocryl subcuticular stitch. All sponge and history counts were correct at the close the procedure and the patient was transferred to the PACU for recovery purposes. Kinjal Hernández MD May 24, 2017 14:30
[2017-05-24] MEDS ORDERED: DO NOT ADM ANY ANTICOAGULANT DRUGS PRN (15:00)
--- NOTE | 2017-05-24 15:33 | RADRPT ---
EXAM DATE/TIME: 05/24/2017 14:48 [facility] COMPARISON: CT THORAX W/O CONTRAST, May 20, 2017, 9:18. CHEST SINGLE AP, May 19, 2017, 20:21. INDICATIONS : Post thoracotomy MEDICAL HISTORY : Hypertension. Spontaneous pneumothorax, SURGICAL HISTORY : Chest tube ENCOUNTER: Initial ACUITY: 4 - 6 days PAIN SCORE: Non-responsive. LOCATION: chest FINDINGS: Portable upright expiratory view the chest demonstrates a normal-sized cardiac silhouette. A right ch est tube remains present with tip at the apex of the hemithorax. No pneumothorax is visualized. There is no pleural effusion or airspace consolidation. Bones and soft tissues demonstrate no acute findin g. There is soft tissue air on the right chest wall. CONCLUSION: Right chest tube is present no pneumothorax is visualized. There is right chest wall soft tissue air. Brayan Washington MD on May 24, 2017 at 15:31 Board Certified Radiologist. This report was verified electronically.
[2017-05-24] MEDS ORDERED: *HYDROmorphone PF 1 MG VIAL PERIprocedural Use ONLY ONE (16:02)
[2017-05-24] MEDS: INSULIN ASPART SUPPLEMENTAL SCALE SQ SCH (18:00)
[2017-05-24] MEDS: KETOROLAC TROMETHAMINE 30 MG/ML (IVP) VIAL IV PUSH SCH ×2 (18:07→21:08)
[2017-05-24] MEDS ORDERED: DOCUSATE CALCIUM 240 MG CAP PO SCH (21:00)
[2017-05-24] MEDS: PANTOPRAZOLE SOD 40 MG DELAYED RELEASE TAB PO SCH (21:08)
[2017-05-24] MEDS ORDERED: ceFAZolin 1 GM PREMIX 50 ML IV SCH (22:00)
[2017-05-25] VITALS (31 sets, daily range): BP systolic 120–172; BP diastolic 75–109; PULSE 63–96; RESP 16–20; TEMP 98.2–98.8; O2SAT 94–98
[2017-05-25] MEDS: HYDROmorphone HCL PF 1 MG/ML VIAL IV PUSH PRN ×4 (02:48→21:59)
[2017-05-25] MEDS: KETOROLAC TROMETHAMINE 30 MG/ML (IVP) VIAL IV PUSH SCH ×2 (04:13→09:37)
[2017-05-25] MEDS: ACETAMINOPHEN/HYDROcodone 325 MG/10 MG TAB PO PRN ×5 (04:13→19:26)
--- NOTE | 2017-05-25 05:03 | RADRPT ---
EXAM DATE/TIME: 05/25/2017 04:10 [facility] COMPARISON: CHEST SINGLE AP, May 24, 2017, 14:48. INDICATIONS : Short of breath. MEDICAL HISTORY : Hypertension. Spontaneous pneumothorax. SURGICAL HISTORY : None. ENCOUNTER: Subsequent ACUITY: 4 - 6 days PAIN SCORE: 0/10 LOCATION: Bilateral chest FINDINGS: Right chest drainage tube remains projected in the lateral right apex. No evidence of pneumothorax. The stable subcutaneous emphysema left lower lateral right chest soft tissues and right supraclavicu lar region. Patchy infiltrates in the right infrahilar region without consolidation. The left lung is clear. Both hemidiaphragms well delineated. CONCLUSION: 1. No pneumothorax seen. Chest tube stable in position. 2. Patchy right infrahilar infiltrates. Alfonzo Toledo MD on May 25, 2017 at 5:00 Board Certified Radiologist. This report was verified electronically.
[2017-05-25 05:42] LABS: AUTOMATED NEUTROPHIL # 5.3 TH/MM3 (1.8-7.7); BASOPHIL % 0.4 % (0.0-2.0); EOSINOPHIL # 0.2 TH/MM3 (0-0.4); EOSINOPHIL % 2.5 % (0.0-4.0); HEMATOCRIT 34.9 % (39.0-51.0); HEMO FLAGS DIFF FINAL; MEAN CORPUSCULAR HGB CONC 34.4 % (32.0-36.0); MONO % 11.5 % (0.0-8.0); NEUT % 62.6 % (16.0-70.0); PLATELET COUNT 213 TH/MM3 (150-450); RED BLOOD COUNT 3.52 MIL/MM3 (4.50-5.90); RED CELL DISTRIBUTION WIDTH 13.1 % (11.6-17.2); WHITE BLOOD COUNT 8.5 TH/MM3 (4.0-11.0)
[2017-05-25] MEDS: INSULIN ASPART SUPPLEMENTAL SCALE SQ SCH ×2 (06:00)
[2017-05-25 06:01] LABS: BICARBONATE 28.2 MEQ/L (21.0-32.0); POTASSIUM 4.3 MEQ/L (3.5-5.1)
[2017-05-25] MEDS: NS + KCL 20 MEQ INJ 1,000 ML IV SCH (06:35)
[2017-05-25] MEDS: SODIUM CHLORIDE 0.9% FLUSH 10 ML FLUSH IV FLUSH SCH ×2 (09:37→21:00)
--- NOTE | 2017-05-25 11:10 | PD.CAR.PN ---
CVT Progress Note Subjective/Hospital Course: 37/ male with admission for chest pain , SOB + spontaneous right pneumothorax/ no air leak noted in pleuravac, chest tube to water seal. . CT chest noted + bullous emphysema pt scheduled for right VATS , bleb resection and talc pleurodesis on Thursday 05/24 PMH: tobacco abuse surgery: Right thoracoscopic exploration, apical bleb resection, and mechanical pleurodesis 05/25 05/24 chest tube no air leak will place to water seal dc IV fluids continue pulm toileting add nebs ezpap acapella. pain control Objective: GENERAL: SKIN: Warm and dry. incision intact right lateral chest wall. dressing to prior chest tube therapy site coordinator: Normocephalic. EYES: No scleral icterus. No injection or drainage. NECK: Supple, trachea midline. No JVD or lymphadenopathy. CARDIOVASCULAR: Regular rate and rhythm without murmurs, gallops, or rubs. RESPIRATORY: Breath sounds equal bilaterally. No accessory muscle use. chest tube to wall suction/ no air leak, placed to water seal / drained 120cc/ 12hrs GASTROINTESTINAL: Abdomen soft, non-tender, nondistended. MUSCULOSKELETAL: No cyanosis, or edema. BACK: Nontender without obvious deformity. No CVA tenderness. Vital Signs Date Time Temp Pulse Resp B/P Pulse Ox O2 Delivery O2 Flow Rate FiO2 05/25/17 06:00 70 05/25/17 05:24 98 Nasal Cannula 2.00 05/25/17 05:00 71 05/25/17 04:15 98.2 63 20 135/85 98 05/25/17 04:03 75 05/25/17 04:00 98 Nasal Cannula 2.00 05/25/17 03:00 91 05/25/17 02:00 89 05/25/17 01:00 90 05/25/17 00:00 78 05/25/17 00:00 98 Nasal Cannula 2.00 05/25/17 00:00 98.2 87 20 120/75 98 05/24/17 23:00 78 05/24/17 22:00 94 05/24/17 21:00 92 05/24/17 20:00 97 Nasal Cannula 2.00 05/24/17 20:00 98.4 86 18 139/90 97 05/24/17 20:00 102 05/24/17 19:00 136 8/14/17 18:23 97.7 86 21 133/87 96 05/24/17 17:30 98.5 92 16 133/87 96 Nasal Cannula 3 05/24/17 17:00 82 15 128/84 96 Nasal Cannula 3 05/24/17 16:30 98 16 127/82 95 Nasal Cannula 3 05/24/17 16:00 76 16 131/85 98 Nasal Cannula 3 05/24/17 15:45 69 16 131/86 98 Nasal Cannula 3 05/24/17 15:30 74 14 143/82 98 Nasal Cannula 3 05/24/17 15:15 68 14 141/80 98 Nasal Cannula 3 05/24/17 15:00 69 14 126/81 98 Simple Mask 8 05/24/17 14:51 97.5 74 14 124/72 98 Simple Mask 8 Labs: Laboratory Tests Test 05/25/17 04:55 White Blood Count 8.5 TH/MM3 (4.0-11.0) Red Blood Count 3.52 MIL/MM3 (4.50-5.90) Hemoglobin 12.0 GM/DL (13.0-17.0) Hematocrit 34.9 % (39.0-51.0) Mean Corpuscular Volume 99.0 FL (80.0-100.0) Mean Corpuscular Hemoglobin 34.0 PG (27.0-34.0) Mean Corpuscular Hemoglobin 34.4 % Concent (32.0-36.0) Red Cell Distribution Width 13.1 % (11.6-17.2) Platelet Count 213 TH/MM3 (150-450) Mean Platelet Volume 7.8 FL (7.0-11.0) Neutrophils (%) (Auto) 62.6 % (16.0-70.0) Lymphocytes (%) (Auto) 23.0 % (9.0-44.0) Monocytes (%) (Auto) 11.5 % (0.0-8.0) Eosinophils (%) (Auto) 2.5 % (0.0-4.0) Basophils (%) (Auto) 0.4 % (0.0-2.0) Neutrophils # (Auto) 5.3 TH/MM3 (1.8-7.7) Lymphocytes # (Auto) 2.0 TH/MM3 (1.0-4.8) Monocytes # (Auto) 1.0 TH/MM3 (0-0.9) Eosinophils # (Auto) 0.2 TH/MM3 (0-0.4) Basophils # (Auto) 0.0 TH/MM3 (0-0.2) CBC Comment DIFF FINAL Differential Comment Sodium Level 136 MEQ/L (136-145) Potassium Level 4.3 MEQ/L (3.5-5.1) Chloride Level 103 MEQ/L (98-107) Carbon Dioxide Level 28.2 MEQ/L (21.0-32.0) Anion Gap 5 MEQ/L (5-15) Blood Urea Nitrogen 13 MG/DL (7-18) Creatinine 0.92 MG/DL (0.60-1.30) Estimat Glomerular Filtration 111 ML/MIN Rate (>89) Random Glucose 104 MG/DL (74-106) Calcium Level 8.5 MG/DL (8.5-10.1) Result Diagram: 05/25/17 0455 05/25/17 0455 (1) Tension pneumothorax, spontaneous Plan: s/p chest tube insertion in ED keep chest tube in , plan for surgery on Wednesday (2) Right thoracoscopic exploration, apical bleb resection, and mechanical pleuradesis Plan: pulm toileting nebs ezpap acapella chest tube water seal pain control Pat Quintana May 25, 2017 11:10
[2017-05-25] MEDS: DOCUSATE SODIUM 100 MG CAP PO SCH ×2 (11:38→21:00)
[2017-05-25] MEDS: POLYETHYLENE GLYCOL 17 GM PKG PO SCH (11:39)
--- NOTE | 2017-05-25 12:44 | HHI.PR ---
Objective Vitals Vital Signs Date Time Temp Pulse Resp B/P Pulse Ox O2 Delivery O2 Flow Rate FiO2 05/25/17 11:27 94 Room Air 05/25/17 11:27 98.3 78 16 147/99 94 05/25/17 11:27 98 Nasal Cannula 2.00 05/25/17 10:00 67 05/25/17 09:00 92 05/25/17 08:00 84 05/25/17 07:15 98.3 70 18 147/81 98 05/25/17 07:15 98 Nasal Cannula 2.00 05/25/17 07:00 67 05/25/17 06:00 70 05/25/17 05:24 98 Nasal Cannula 2.00 05/25/17 05:00 71 05/25/17 04:15 98.2 63 20 135/85 98 05/25/17 04:03 75 05/25/17 04:00 98 Nasal Cannula 2.00 05/25/17 03:00 91 05/25/17 02:00 89 05/25/17 01:00 90 05/25/17 00:00 78 05/25/17 00:00 98 Nasal Cannula 2.00 05/25/17 00:00 98.2 87 20 120/75 98 05/24/17 23:00 78 05/24/17 22:00 94 05/24/17 21:00 92 05/24/17 20:00 97 Nasal Cannula 2.00 05/24/17 20:00 98.4 86 18 139/90 97 05/24/17 20:00 102 05/24/17 19:00 136 05/24/17 18:23 97.7 86 21 133/87 96 05/24/17 17:30 98.5 92 16 133/87 96 Nasal Cannula 3 05/24/17 17:00 82 15 128/84 96 Nasal Cannula 3 05/24/17 16:30 98 16 127/82 95 Nasal Cannula 3 05/24/17 16:00 76 16 131/85 98 Nasal Cannula 3 05/24/17 15:45 69 16 131/86 98 Nasal Cannula 3 05/24/17 15:30 74 14 143/82 98 Nasal Cannula 3 05/24/17 15:15 68 14 141/80 98 Nasal Cannula 3 05/24/17 15:00 69 14 126/81 98 Simple Mask 8 05/24/17 14:51 97.5 74 14 124/72 98 Simple Mask 8 I/O 05/24/17 05/24/17 05/24/17 05/25/17 05/25/17 05/25/17 06:59 14:59 22:59 06:59 14:59 22:59 Intake Total 1200 ml 134 ml 1948 ml Output Total 20 ml 20 ml 430 ml 770 ml Balance -20 ml 1180 ml -296 ml 1178 ml Intake Oral 740 ml IV Total 134 ml 1208 ml Other 1200 ml Output Urine Total 350 ml 650 ml Chest Tube Drainage Total 20 ml 80 ml 120 ml Estimated Blood Loss 20 ml # Voids 3 Result Diagram: 05/25/175 05/25/17 0455 Objective Remarks GENERAL: Well-developed, well-nourished in no distress SKIN: Warm and dry. No rash EYES: Pupils equal and round. No scleral icterus. No injection or drainage. CARDIOVASCULAR: Regular rate and rhythm. RESPIRATORY: No accessory muscle use. Clear to auscultation. Breath sounds equal bilaterally. Chest tube in place right chest wall GASTROINTESTINAL: Abdomen soft, non-tender, nondistended. MUSCULOSKELETAL: Extremities without clubbing, cyanosis, or edema. No obvious deformities. NEUROLOGICAL: Awake and alert. No obvious cranial nerve deficits. Motor grossly within normal limits. Five out of 5 muscle strength in the arms and legs. Normal speech. Nonfocal Procedures Chest tube insertion right chest wall secondary to pneumothorax A/P Problem List: (1) Tension pneumothorax, spontaneous ICD Code: J93.0 Status: Acute Assessment and Plan Large Right Spontaneous Pneumothorax. Chest CT shows bolus emphysema bilateral apices - s/p right chest tube - pt scheduled for right VATS , bleb resection and talc pleurodesis today. Start IV fluids - pain management with Lortab and IV Dilaudid for breakthrough pain. - tobacco cessation Pruritus secondary to Dilaudid. No respiratory involvement. Improved. Benadryl as needed. Monitor. Hypertension. Worse secondary to pain. We'll monitor consider starting anti- hypertensives. DVT prophylaxis - SCDs/TEDs Discharge Planning Not ready for discharge Kwasi Velazquez MD May 25, 2017 12:44
[2017-05-25] MEDS: RESP: ALBUTEROL 2.5 MG/IPRATROPIUM 0.5 MG NEB (SCH) NEB ×2 (13:17→20:00)
--- NOTE | 2017-05-25 14:04 | HHI.FF ---
Face to Face Verification Diagnosis: (1) Tension pneumothorax, spontaneous (2) Right thoracoscopic exploration, apical bleb resection, and mechanical pleuradesis Home Health Nursing Order: Medication education-adverse effect Wound care and dressing changes Nursing assessment with vital signs Home Health Aide Instructions: Thoracic Surgery patients Mandatory frequency Assess and evaluation, 2-3 x a week for one week Initial visit Review post chest surgery instructions chest precautions, Activity, Elastic hose, Incision care, Driving, Incentive spirometry, Smoking, [place] , Work and other) Need Betadine to paint incision Medication reconciliation Importance of follow up care/ check on appointments Make calendar record temperature daily When to call Home nurse, review instructions, phone list Incentive Spirometry, demonstration Visit 1- Begin discharge instruction for patient family and/ or caregiver using teach back method- Signs and symptoms of infection Disease characteristics Medicines and side effects Foods and nutrition/ appetite Infection control/ hand washing/ hygiene Visit 2- Continue teaching Discharge instructions- include additional information on smoking cessation Visit 3- Continue teaching- Cough and deep breathing, incision monitoring. Choose my plate Visit 4- Continue teaching- Discuss limitations Discuss how they are feeling Discuss progress toward goals Remaining visits- continue teaching and monitoring For any questions please call : [phone] Incentive spirometry Q1 hr x 10, while awake, also use acapella device hourly whole awake chest wall Precautions: NO pushing or pulling, ( pt must use chest pillow to support chest with all activities and with coughing Daily incision care: ok to shower daily, starting 2 days after chest tube removed , no tub bath. Wash all incisions with liquid dial soap, clean wash cloth to each site, rinse and pat dry. Observe for any signs of infection, such as drainage which is dark yellow, ho, green or foul smelling. Immediately report to the surgeon any drainage from the chest incision, or legs , and for any abnormal drainage from the chest tube sites. Notify surgeon if any temp >101.5 degrees F. When specialty dressing removed/ or if you do not have one, continue to shower daily as above, then rinse and pat incision dry and paint with betadine daily x 5 days. Allow steri strips to fall off if you have any. Avoid lotions, creams, salves, oils, etc. for the first month For Dr. Hernández patients , , PA & Lat CXR in 2 weeks, results to Dr. Hernández ( prescription will be given) ( ) (Tele: [phone]) , F/U appointment: as per DC instructions: PCP in 2 weeks, CV surgeon 2 weeks, For any questions regarding incisions/ dressing / meds / post op care or above Symptoms, Wednesday 8am-5pm Heart & Vascular Surgery Office ( Dr. Morris & Dr. Hernández), After Hours / Nights (5pm -8am) Weekends and Holidays Please call [facility] ([facility]) Charge Nurse I have seen patient Julianna Spears on 05/25/17. My clinical findings support the need for the requested home health care services because: Deconditioned w/ increased weakness I certify that my clinical findings support that this patient is homebound because: Post-op weakness Pat Quintana May 25, 2017 14:04
--- NOTE | 2017-05-25 14:17 | HHI.PR ---
Subjective Remarks Follow-up pneumothorax. He is doing better pain under control. No shortness of breath Objective Vitals Vital Signs Date Time Temp Pulse Resp B/P Pulse Ox O2 Delivery O2 Flow Rate FiO2 05/25/17 12:00 72 05/25/17 11:27 94 Room Air 05/25/17 11:27 98.3 78 16 147/99 94 05/25/17 11:27 98 Nasal Cannula 2.00 05/25/17 11:00 74 05/25/17 10:00 67 05/25/17 09:00 92 05/25/17 08:00 84 05/25/17 07:15 98.3 70 18 147/81 98 05/25/17 07:15 98 Nasal Cannula 2.00 05/25/17 07:00 67 05/25/17 06:00 70 05/25/17 05:24 98 Nasal Cannula 2.00 05/25/17 05:00 71 05/25/17 04:15 98.2 63 20 135/85 98 05/25/17 04:03 75 05/25/17 04:00 98 Nasal Cannula 2.00 05/25/17 03:00 91 05/25/17 02:00 89 05/25/17 01:00 90 05/25/17 00:00 78 05/25/17 00:00 98 Nasal Cannula 2.00 05/25/17 00:00 98.2 87 20 120/75 98 05/24/17 23:00 78 05/24/17 22:00 94 05/24/17 21:00 92 05/24/17 20:00 97 Nasal Cannula 2.00 05/24/17 20:00 98.4 86 18 139/90 97 05/24/17 20:00 102 05/24/17 19:00 136 05/24/17 18:23 97.7 86 21 133/87 96 05/24/17 17:30 98.5 92 16 133/87 96 Nasal Cannula 3 05/24/17 17:00 82 15 128/84 96 Nasal Cannula 3 05/24/17 16:30 98 16 127/82 95 Nasal Cannula 3 05/24/17 16:00 76 16 131/85 98 Nasal Cannula 3 05/24/17 15:45 69 16 131/86 98 Nasal Cannula 3 05/24/17 15:30 74 14 143/82 98 Nasal Cannula 3 05/24/17 15:15 68 14 141/80 98 Nasal Cannula 3 05/24/17 15:00 69 14 126/81 98 Simple Mask 8 05/24/17 14:51 97.5 74 14 124/72 98 Simple Mask 8 I/O 05/24/17 05/24/17 05/24/17 05/25/17 05/25/17 05/25/17 07:00 15:00 23:00 07:00 15:00 23:00 Intake Total 1200 ml 134 ml 1948 ml Output Total 20 ml 20 ml 430 ml 770 ml Balance -20 ml 1180 ml -296 ml 1178 ml Intake Oral 740 ml IV Total 134 ml 1208 ml Other 1200 ml Output Urine Total 350 ml 650 ml Chest Tube Drainage Total 20 ml 80 ml 120 ml Estimated Blood Loss 20 ml # Voids 3 Result Diagram: 05/25/17 0455 05/25/17 0455 Imaging Last Impressions Chest X-Ray 05/25/17 0600 Signed Impressions: Service Date/Time: Thursday, May 25, 2017 04:10 - CONCLUSION: 1. No pneumothorax seen. Chest tube stable in position. 2. Patchy right infrahilar infiltrates. Alfonzo Toledo MD Chest CT 05/20/17 0000 Signed Impressions: Service Date/Time: May 09:18 - CONCLUSION: 1. There is evidence of bullous emphysema in both apices. 2. Right-sided chest tube in good position with only a trace of a right pneumothorax. 3. Bibasilar atelectasis. Maynor Natarajan MD Objective Remarks GENERAL: Well-developed, well-nourished in no distress on room air SKIN: Warm and dry. No rash EYES: Pupils equal and round. No scleral icterus. No injection or drainage. CARDIOVASCULAR: Regular rate and rhythm. RESPIRATORY: No accessory muscle use. Clear to auscultation. Breath sounds equal bilaterally. Chest tube on water seal GASTROINTESTINAL: Abdomen soft, non-tender, nondistended. MUSCULOSKELETAL: Extremities without clubbing, cyanosis, or edema. No obvious deformities. NEUROLOGICAL: Awake and alert. No obvious cranial nerve deficits. Motor grossly within normal limits. Five out of 5 muscle strength in the arms and legs. Normal speech. Nonfocal Procedures Chest tube insertion right chest wall secondary to pneumothorax Right thoracoscopic exploration, apical bleb resection, and mechanical pleurodesis A/P Problem List: (1) Tension pneumothorax, spontaneous ICD Code: J93.0 Status: Acute Assessment and Plan Large Right Spontaneous Pneumothorax. Chest CT shows bolus emphysema bilateral apices - s/p right chest tube on water seal. Repeat x-ray shows no pneumothorax - Right thoracoscopic exploration, apical bleb resection, and mechanical pleurodesis - pain management with Lortab and IV Dilaudid for breakthrough pain. - tobacco cessation Postoperative anemia 2/2 acute blood loss. Hemodynamically stable Pruritus secondary to Dilaudid. No respiratory involvement. Improved. Benadryl as needed. Monitor. Hypertension. Worse secondary to pain. We'll monitor consider starting anti- hypertensives. DVT prophylaxis - SCDs/TEDs Discharge Planning Not ready for discharge Kwasi Velazquez MD May 25, 2017 14:17
[2017-05-25] MEDS ORDERED: HYDR-3583 PO (14:20)
[2017-05-25] MEDS ORDERED: cloNIDine HCL 0.1 MG TAB PO PRN (16:15)
[2017-05-25] MEDS: METOPROLOL TARTRATE 25 MG TAB PO SCH ×2 (16:46→21:59)
[2017-05-25] MEDS: PANTOPRAZOLE SOD 40 MG DELAYED RELEASE TAB PO SCH (21:59)
[2017-05-26] VITALS (23 sets, daily range): BP systolic 150–159; BP diastolic 89–103; PULSE 69–93; RESP 18–20; TEMP 97.5–98.5; O2SAT 94–100
[2017-05-26] MEDS: ACETAMINOPHEN/HYDROcodone 325 MG/10 MG TAB PO PRN ×5 (00:50→23:49)
--- NOTE | 2017-05-26 05:30 | RADRPT ---
EXAM DATE/TIME: 05/26/2017 05:15 [facility] COMPARISON: CT THORAX W/O CONTRAST, May 20, 2017, 9:18. CHEST SINGLE AP, May 25, 2017, 4:10. INDICATIONS : Shortness of breath. MEDICAL HISTORY : Hypertension. Spontaneous pneumothorax SURGICAL HISTORY : Chest tube ENCOUNTER: Subsequent ACUITY: 1 week PAIN SCORE: 0/10 LOCATION: Bilateral chest FINDINGS: Right chest tube tip remains projected at the right upper chest. No evidence of pneumothorax. Impro corina aeration of the lower lungs. No residual infiltrate seen. The heart is normal in size. Both he midiaphragms well delineated. CONCLUSION: The lungs are clear. No pneumothorax seen. Alfonzo Toledo MD on May 26, 2017 at 5:27 Board Certified Radiologist. This report was verified electronically.
[2017-05-26] MEDS: METOPROLOL TARTRATE 25 MG TAB PO SCH ×2 (08:03→20:11)
[2017-05-26] MEDS: HYDROmorphone HCL PF 1 MG/ML VIAL IV PUSH PRN ×4 (08:03→20:50)
[2017-05-26] MEDS: RESP: ALBUTEROL 2.5 MG/IPRATROPIUM 0.5 MG NEB (SCH) NEB ×3 (08:07→19:36)
[2017-05-26] MEDS: SODIUM CHLORIDE 0.9% FLUSH 10 ML FLUSH IV FLUSH SCH ×2 (08:09→20:11)
[2017-05-26] MEDS: POLYETHYLENE GLYCOL 17 GM PKG PO SCH (08:09)
[2017-05-26] MEDS: DOCUSATE SODIUM 100 MG CAP PO SCH ×2 (08:09→20:11)
[2017-05-26] MEDS ORDERED: METO25TA3 PO (08:30)
--- NOTE | 2017-05-26 10:00 | HHI.PR ---
Subjective Remarks F/U PTX. Pain under control. CT on water seal rpt CXR w/o PTX. Advised no flying dw RN to call when CT out and cleared for dc by CTS. Objective Vitals Vital Signs Date Time Temp Pulse Resp B/P Pulse Ox O2 Delivery O2 Flow Rate FiO2 05/26/17 09:09 87 05/26/17 08:39 18 05/26/17 08:10 97 21 05/26/17 07:00 72 05/26/17 07:00 97 Room Air 05/26/17 07:00 97.5 72 18 153/103 97 05/26/17 06:00 77 05/26/17 05:00 69 05/26/17 04:00 78 05/26/17 04:00 98.2 72 20 150/96 96 05/26/17 03:00 69 05/26/17 02:00 80 05/26/17 01:00 93 05/26/17 00:00 98.5 84 20 154/89 96 05/26/17 00:00 91 05/25/17 23:00 84 05/25/17 22:00 82 05/25/17 21:57 97 21 05/25/17 21:00 82 05/25/17 20:00 95 Nasal Cannula 2.00 05/25/17 20:00 98.5 85 20 154/96 95 05/25/17 20:00 84 05/25/17 19:00 85 05/25/17 18:20 96 05/25/17 18:03 98.3 143/86 05/25/17 17:00 90 05/25/17 16:00 86 05/25/17 15:25 98.8 88 18 172/109 98 05/25/17 15:00 84 05/25/17 14:00 84 05/25/17 13:00 70 05/25/17 12:00 72 05/25/17 11:27 94 Room Air 05/25/17 11:27 98.3 78 16 147/99 94 05/25/17 11:27 98 Nasal Cannula 2.00 05/25/17 11:00 74 05/25/17 10:00 67 I/O 05/25/17 05/25/17 05/25/17 05/26/17 05/26/17 05/26/17 06:59 14:59 22:59 06:59 14:59 22:59 Intake Total 1948 ml 1400 ml 420 ml Output Total 770 ml 2045 ml 1240 ml Balance 1178 ml -645 ml -820 ml Intake Oral 740 ml 1300 ml 420 ml IV Total 1208 ml 100 ml Output Urine Total 650 ml 1975 ml 1200 ml Chest Tube Drainage Total 120 ml 70 ml 40 ml # Bowel Movements 0 Result Diagram: 05/25/17 0455 05/25/17 0455 Imaging Last Impressions Chest X-Ray 05/26/17 0600 Signed Impressions: Service Date/Time: Friday, May 26, 2017 05:15 - CONCLUSION: The lungs are clear. No pneumothorax seen. Alfonzo Toledo MD Chest CT 05/20/17 0000 Signed Impressions: Service Date/Time: May 09:18 - CONCLUSION: 1. There is evidence of bullous emphysema in both apices. 2. Right-sided chest tube in good position with only a trace of a right pneumothorax. 3. Bibasilar atelectasis. Maynor Natarajan MD Objective Remarks GENERAL: Well-developed, well-nourished in no distress on room air SKIN: Warm and dry. No rash EYES: Pupils equal and round. No scleral icterus. No injection or drainage. CARDIOVASCULAR: Regular rate and rhythm. RESPIRATORY: No accessory muscle use. Clear to auscultation. Breath sounds equal bilaterally. Chest tube on water seal GASTROINTESTINAL: Abdomen soft, non-tender, nondistended. MUSCULOSKELETAL: Extremities without clubbing, cyanosis, or edema. No obvious deformities. NEUROLOGICAL: Awake and alert. No obvious cranial nerve deficits. Motor grossly within normal limits. Five out of 5 muscle strength in the arms and legs. Normal speech. Nonfocal Procedures Chest tube insertion right chest wall secondary to pneumothorax Right thoracoscopic exploration, apical bleb resection, and mechanical pleurodesis A/P Problem List: (1) Tension pneumothorax, spontaneous ICD Code: J93.0 Status: Acute Assessment and Plan Large Right Spontaneous Pneumothorax. Chest CT shows bolus emphysema bilateral apices - s/p right chest tube on water seal. Repeat x-ray shows no pneumothorax. Chest tube management per CTS - Right thoracoscopic exploration, apical bleb resection, and mechanical pleurodesis - pain management with Lortab and IV Dilaudid for breakthrough pain. - tobacco cessation - No flying until cleared by CTS Postoperative anemia 2/2 acute blood loss. Hemodynamically stable Pruritus secondary to Dilaudid. No respiratory involvement. Improved. Benadryl as needed. Monitor. Hypertension. Tolerating Lopressor. Continue to monitor DVT prophylaxis - SCDs/TEDs Discharge Planning Discharge when CT removed Kwasi Velazquez MD May 26, 2017 09:59
[2017-05-26] MEDS: amLODIPine BESYLATE 5 MG TAB PO SCH (12:55)
[2017-05-26] MEDS: MAGNESIUM HYDROXIDE SUSP 30 ML CUP PO SCH (12:55)
--- NOTE | 2017-05-26 16:30 | PD.CAR.PN ---
CVT Progress Note Subjective/Hospital Course: 37/ male with admission for chest pain , SOB + spontaneous right pneumothorax/ no air leak noted in pleuravac, chest tube to water seal. . CT chest noted + bullous emphysema pt scheduled for right VATS , bleb resection and talc pleurodesis on Thursday 05/24 PMH: tobacco abuse surgery: Right thoracoscopic exploration, apical bleb resection, and mechanical pleurodesis 05/25 05/24 chest tube no air leak will place to water seal dc IV fluids continue pulm toileting add nebs ezpap acapella. pain control 05/26 cxr with no PTX , continue water seal recheck CXR in am , if no pTX then dc chest tube and possible dc home Objective: GENERAL: SKIN: Warm and dry. incision intact to right posterior lateral chest wall HEAD: Normocephalic. EYES: No scleral icterus. No injection or drainage. NECK: Supple, trachea midline. No JVD or lymphadenopathy. CARDIOVASCULAR: Regular rate and rhythm without murmurs, gallops, or rubs. RESPIRATORY: Breath sounds equal bilaterally chest tube no air leak, drained 40cc/ 12 hrs No accessory muscle use. GASTROINTESTINAL: Abdomen soft, non-tender, nondistended. MUSCULOSKELETAL: No cyanosis, or edema. BACK: Nontender without obvious deformity. No CVA tenderness. Vital Signs Date Time Temp Pulse Resp B/P Pulse Ox O2 Delivery O2 Flow Rate FiO2 05/26/17 16:02 84 05/26/17 15:54 84 05/26/17 15:54 97.8 90 18 154/94 98 05/26/17 14:02 85 05/26/17 13:33 18 05/26/17 13:14 79 05/26/17 12:03 78 05/26/17 11:25 18 05/26/17 11:17 97.6 70 18 154/95 97 05/26/17 11:17 72 05/26/17 10:00 76 05/26/17 09:09 87 05/26/17 08:10 97 21 05/26/17 07:00 72 05/26/17 07:00 97 Room Air 05/26/17 07:00 97.5 72 18 153/103 97 05/26/17 06:00 77 05/26/17 05:00 69 05/26/17 04:00 78 05/26/17 04:00 98.2 72 20 150/96 96 05/26/17 03:00 69 05/26/17 02:00 80 05/26/17 01:00 93 05/26/17 00:00 98.5 84 20 154/89 96 05/26/17 00:00 91 05/25/17 23:00 84 05/25/17 22:00 82 05/25/17 21:57 97 21 05/25/17 21:00 82 05/25/17 20:00 95 Nasal Cannula 2.00 05/25/17 20:00 98.5 85 20 154/96 95 05/25/17 20:00 84 05/25/17 19:00 85 05/25/17 18:20 96 05/25/17 18:03 98.3 143/86 05/25/17 17:00 90 Result Diagram: 05/25/17 0455 05/25/17 0455 Telemetry: NSr (1) Tension pneumothorax, spontaneous Plan: s/p chest tube insertion in ED keep chest tube in , continue water seal will eval for removal in am (2) Right thoracoscopic exploration, apical bleb resection, and mechanical pleuradesis Plan: pulm toileting nebs ezpap acapella chest tube water seal pain control Pat Quintana May 26, 2017 16:30
[2017-05-26] MEDS: PANTOPRAZOLE SOD 40 MG DELAYED RELEASE TAB PO SCH (20:11)
[2017-05-27] VITALS (27 sets, daily range): BP systolic 143–157; BP diastolic 84–97; PULSE 63–86; RESP 12–18; TEMP 97.9–98.4; O2SAT 95–100
[2017-05-27] MEDS: HYDROmorphone HCL PF 1 MG/ML VIAL IV PUSH PRN ×4 (00:47→23:02)
[2017-05-27] MEDS: ACETAMINOPHEN/HYDROcodone 325 MG/10 MG TAB PO PRN ×4 (03:29→21:34)
--- NOTE | 2017-05-27 06:17 | RADRPT ---
EXAM DATE/TIME: 05/27/2017 05:09 [facility] COMPARISON: CHEST SINGLE AP, May 26, 2017, 5:15. INDICATIONS : Shortness of breath, possible pulmonary disease. MEDICAL HISTORY : Hypertension. Spontaneous pneumothorax SURGICAL HISTORY : None. ENCOUNTER: Subsequent ACUITY: 1 week PAIN SCORE: 4/10 LOCATION: Right chest FINDINGS: Right chest drainage tube tip remains projected at the apex. No pneumothorax seen. The lungs are cl ear. The heart is normal size. Both hemidiaphragms well delineated. CONCLUSION: The lungs are clear. No pneumothorax seen. Alfonzo Toledo MD on May 27, 2017 at 6:15 Board Certified Radiologist. This report was verified electronically.
[2017-05-27] MEDS: RESP: ALBUTEROL 2.5 MG/IPRATROPIUM 0.5 MG NEB (SCH) NEB ×3 (08:39→20:29)
[2017-05-27] MEDS: SODIUM CHLORIDE 0.9% FLUSH 10 ML FLUSH IV FLUSH SCH ×2 (09:00→21:00)
[2017-05-27] MEDS: METOPROLOL TARTRATE 25 MG TAB PO SCH ×2 (10:00→21:34)
[2017-05-27] MEDS: amLODIPine BESYLATE 5 MG TAB PO SCH (10:00)
[2017-05-27] MEDS: DOCUSATE SODIUM 100 MG CAP PO SCH ×2 (10:00→21:34)
[2017-05-27] MEDS: POLYETHYLENE GLYCOL 17 GM PKG PO SCH (10:01)
[2017-05-27] MEDS: MAGNESIUM HYDROXIDE SUSP 30 ML CUP PO SCH (10:01)
--- NOTE | 2017-05-27 11:13 | PD.CAR.PN ---
CVT Progress Note Subjective/Hospital Course: 37/ male with admission for chest pain , SOB + spontaneous right pneumothorax/ no air leak noted in pleuravac, chest tube to water seal. . CT chest noted + bullous emphysema pt scheduled for right VATS , bleb resection and talc pleurodesis on Thursday 05/24 PMH: tobacco abuse surgery: Right thoracoscopic exploration, apical bleb resection, and mechanical pleurodesis 05/25 05/24 chest tube no air leak will place to water seal dc IV fluids continue pulm toileting add nebs ezpap acapella. pain control 05/26 cxr with no PTX , continue water seal recheck CXR in am , if no pTX then dc chest tube and possible dc home 05/27 chest tube removed without difficulty prior chest tube site evaluated / 2cm length 0.5cm deep wound iodafoam 1/2 inch gauze packing placed in wound recheck CXR and wound in am , if stable then ok to dc home Objective: GENERAL: SKIN: Warm and dry. vaseline guaze dressing to chest tube site, prior chest tube site with small .5cm in depth and 2cm in length wound packed with iodoform gauze HEAD: Normocephalic. EYES: No scleral icterus. No injection or drainage. NECK: Supple, trachea midline. No JVD or lymphadenopathy. CARDIOVASCULAR: Regular rate and rhythm without murmurs, gallops, or rubs. RESPIRATORY: Breath sounds equal bilaterally. No accessory muscle use. GASTROINTESTINAL: Abdomen soft, non-tender, nondistended. MUSCULOSKELETAL: No cyanosis, or edema. BACK: Nontender without obvious deformity. No CVA tenderness. Vital Signs Date Time Temp Pulse Resp B/P Pulse Ox O2 Delivery O2 Flow Rate FiO2 05/27/17 08:45 100 05/27/17 07:47 97.9 68 16 153/97 97 05/27/17 07:20 97 Room Air 05/27/17 07:20 68 05/27/17 06:34 18 05/27/17 06:34 63 05/27/17 05:26 63 05/27/17 05:26 16 05/27/17 04:53 96 05/27/17 04:20 74 05/27/17 03:30 98.1 68 18 150/92 96 05/27/17 03:00 75 05/26/17 23:00 98.4 80 18 156/93 96 05/26/17 23:00 91 05/26/17 19:36 94 21 05/26/17 19:30 Room Air 05/26/17 19:30 98.1 83 18 159/93 100 05/26/17 19:00 90 05/26/17 18:05 86 05/26/17 17:03 83 05/26/17 16:02 84 05/26/17 15:54 84 05/26/17 15:54 97.8 90 18 154/94 98 05/26/17 14:02 85 05/26/17 13:14 79 05/26/17 12:03 78 05/26/17 11:17 97.6 70 18 154/95 97 05/26/17 11:17 72 Result Diagram: 05/25/17 0455 05/25/17 0455 Telemetry: NSR (1) Tension pneumothorax, spontaneous Plan: s/p chest tube insertion in ED chest tube dc vaseline gauze dressing to site iodafoam gauze packing to right upper chest wall wound ( prior chest tube site check cxr in am , if stabel ok to dc home (2) Right thoracoscopic exploration, apical bleb resection, and mechanical pleuradesis Plan: pulm toileting nebs ezpap acapella chest tube water seal pain control Pat Quintana May 27, 2017 11:13
--- NOTE | 2017-05-27 13:23 | HHI.PR ---
Subjective Remarks Follow-up on spontaneous pneumothorax. Patient has no acute complaints at this time, says he is breathing better with the tube out Objective Vitals Vital Signs Date Time Temp Pulse Resp B/P Pulse Ox O2 Delivery O2 Flow Rate FiO2 05/27/17 13:00 80 05/27/17 12:00 76 05/27/17 11:00 98.0 75 12 146/91 97 05/27/17 11:00 74 05/27/17 10:00 82 05/27/17 09:00 86 05/27/17 08:45 100 05/27/17 08:00 64 05/27/17 07:47 97.9 68 16 153/97 97 05/27/17 07:20 97 Room Air 05/27/17 07:20 68 05/27/17 06:34 18 05/27/17 06:34 63 05/27/17 05:26 63 05/27/17 05:26 16 05/27/17 04:53 96 05/27/17 04:20 74 05/27/17 03:30 98.1 68 18 150/92 96 05/27/17 03:00 75 05/26/17 23:00 98.4 80 18 156/93 96 05/26/17 23:00 91 05/26/17 19:36 94 21 05/26/17 19:30 Room Air 05/26/17 19:30 98.1 83 18 159/93 100 05/26/17 19:00 90 05/26/17 18:05 86 05/26/17 17:03 83 05/26/17 16:02 84 05/26/17 15:54 84 05/26/17 15:54 97.8 90 18 154/94 98 05/26/17 14:02 85 I/O 05/26/17 05/26/17 05/26/17 05/27/17 05/27/17 05/27/17 07:00 15:00 23:00 07:00 15:00 23:00 Intake Total 420 ml 600 ml 480 ml Output Total 1240 ml 1310 ml 880 ml 10 ml Balance -820 ml -710 ml -400 ml -10 ml Intake Oral 420 ml 600 ml 480 ml Output Urine Total 1200 ml 1200 ml 850 ml Chest Tube Drainage Total 40 ml 110 ml 30 ml 10 ml # Bowel Movements 0 Result Diagram: 05/25/17 0455 05/25/17 0455 Imaging Last 24 hours Impressions Chest X-Ray 05/27/17 0600 Signed Impressions: Service Date/Time: May 05:09 - CONCLUSION: The lungs are clear. No pneumothorax seen. Alfonzo Toledo MD Objective Remarks GENERAL: Dressing on right chest, no acute distress CARDIOVASCULAR: Regular rate and rhythm without murmurs, gallops, or rubs. RESPIRATORY: Breath sounds equal and clear bilaterally. Unlabored breathing GASTROINTESTINAL: Abdomen soft, non-tender, nondistended. MUSCULOSKELETAL: No cyanosis, or edema. ambulating down the [place] w/o difficulty Procedures Chest tube insertion right chest wall secondary to pneumothorax Right thoracoscopic exploration, apical bleb resection, and mechanical pleurodesis A/P Problem List: (1) Tension pneumothorax, spontaneous ICD Code: J93.0 Status: Acute Assessment and Plan Large Right Spontaneous Pneumothorax. Chest CT shows bolus emphysema bilateral apices - s/p right chest tube on water seal. Repeat x-ray shows no pneumothorax. Chest tube removed by CTS. - Right thoracoscopic exploration, apical bleb resection, and mechanical pleurodesis - pain management with Lortab and IV Dilaudid for breakthrough pain. - tobacco cessation - No flying until cleared by CTS, monitor tonight with repeat CXR in AM, if stable anticipate d/c in AM Postoperative anemia 2/2 acute blood loss. Hemodynamically stable Pruritus secondary to Dilaudid. No respiratory involvement. Improved. Benadryl as needed. Monitor. Hypertension. Tolerating Lopressor. Continue to monitor DVT prophylaxis - SCDs/TEDs Pako Gamez MD May 27, 2017 13:23
[2017-05-27] MEDS: PANTOPRAZOLE SOD 40 MG DELAYED RELEASE TAB PO SCH (21:34)
[2017-05-28] VITALS (11 sets, daily range): BP systolic 135–155; BP diastolic 81–99; PULSE 61–81; RESP 16–20; TEMP 98–98.1; O2SAT 96–99
[2017-05-28] MEDS: ACETAMINOPHEN/HYDROcodone 325 MG/10 MG TAB PO PRN ×3 (02:08→10:26)
[2017-05-28] MEDS: LACTULOSE SYRUP 20 GM/30 ML CUP PO PRN (02:10)
[2017-05-28] MEDS: HYDROmorphone HCL PF 1 MG/ML VIAL IV PUSH PRN (03:32)
[2017-05-28] MEDS: RESP: ALBUTEROL 2.5 MG/IPRATROPIUM 0.5 MG NEB (SCH) NEB ×2 (07:50→13:07)
[2017-05-28] MEDS ORDERED: MAGNESIUM CITRATE SOLN 300 ML BTL PO ONE (08:15)
--- NOTE | 2017-05-28 09:31 | RADRPT ---
EXAM DATE/TIME: 05/28/2017 08:49 [facility] COMPARISON: CHEST SINGLE AP, May 27, 2017, 5:09. INDICATIONS : Status post chest tube removal. MEDICAL HISTORY : Hypertension. Spontaneous pneumothorax SURGICAL HISTORY : None. ENCOUNTER: Subsequent ACUITY: 2 days PAIN SCORE: 0/10 LOCATION: Bilateral chest FINDINGS: A single view of the chest demonstrates the lungs to be symmetrically aerated without evidence of mas s, infiltrate or effusion. There is mild scarring and/or atelectasis left lung. The right-sided ches t tube has been removed and there is no pneumothorax. Mild subcutaneous emphysema is noted over the r ight lateral chest wall. The cardiomediastinal contours are unremarkable. Osseous structures are int act. CONCLUSION: 1. Interval removal of right-sided chest tube with no pneumothorax. 2. Mild atelectasis or scarring in the left lung. Ilya Martin MD on May 28, 2017 at 9:27 Board Certified Radiologist. This report was verified electronically.
[2017-05-28] MEDS: DOCUSATE SODIUM 100 MG CAP PO SCH (09:54)
[2017-05-28] MEDS: METOPROLOL TARTRATE 25 MG TAB PO SCH (09:54)
[2017-05-28] MEDS: amLODIPine BESYLATE 5 MG TAB PO SCH (09:54)
[2017-05-28] MEDS: SODIUM CHLORIDE 0.9% FLUSH 10 ML FLUSH IV FLUSH SCH (09:54)
--- NOTE | 2017-05-28 12:39 | HHI.DCPOC ---
Discharge Care Plan Additional Problems Pneumothorax Goals to Promote Your Health * To prevent worsening of your condition and complications * To maintain your health at the optimal level Avoid flying for 4 weeks and avoid diving for 3 months Directions to Meet Your Goals Take your medications as prescribed Follow your dietary instruction Follow activity as directed Keep your appointments as scheduled Take your immunizations and boosters as scheduled If your symptoms worsen call your PCP, if no PCP go to Urgent Care Center or Emergency Room Smoking is Dangerous to Your Health. Avoid second hand smoke Call the 24-hour hour crisis hotline for domestic abuse at Pako Gamez MD May 28, 2017 12:39
--- NOTE | 2017-05-28 14:57 | HHI.DS ---
Discharge Summary Admission Date May 19, 2017 at 21:16 Discharge Date: May 28, 2017 Admitting Diagnosis SPONTANEOUS RT PNEUMOTHORAX S/P CHEST TUBE PLACEMENT (1) Tension pneumothorax, spontaneous ICD Code: J93.0 Procedures Chest tube insertion right chest wall secondary to pneumothorax Right thoracoscopic exploration, apical bleb resection, and mechanical pleurodesis Brief History - From Admission Written by Sue Rodriguez, acting as scribe for Dr. Burgos on 05/19/17 at 23:10. Patient seen in ED. Last night had a headache Took Advil and Tylenol pm and headache didn't improve Has had shortness of breath, cough, and painful respiration - right thorax starting today - patient reports pain still present but relieved with pain medications given in ED Denies any history of pneumothorax Denies fever, recent prolonged travel The patient is a cigarette smoker denies trauma CBC/BMP: 05/25/17 0455 05/25/17 0455 Imaging Last Impressions Chest X-Ray 05/28/17 0000 Signed Impressions: Service Date/Time: Sunday, May 28, 2017 08:49 - CONCLUSION: 1. Interval removal of right-sided chest tube with no pneumothorax. 2. Mild atelectasis or scarring in the left lung. Ilya Martin MD Chest CT 05/20/17 0000 Signed Impressions: Service Date/Time: May 09:18 - CONCLUSION: 1. There is evidence of bullous emphysema in both apices. 2. Right-sided chest tube in good position with only a trace of a right pneumothorax. 3. Bibasilar atelectasis. Maynor Natarajan MD PE at Discharge GENERAL: Dressing on right chest, no acute distress CARDIOVASCULAR: Regular rate and rhythm without murmurs, gallops, or rubs. RESPIRATORY: Breath sounds equal and clear bilaterally. Unlabored breathing Hospital Course Patient had chest tube placed in emergency room, was admitted, cardiothoracic surgery consulted. Right thoracoscopic exploration, apical bleb resection, and mechanical pleurodesis. Had no substantial complications postop. Chest leak had sealed, had been cleared for discharge per CT surgery. Patient has met maximum benefit from hospitalization and is clinically stable discharge. Was counseled on avoiding smoking. Is also to avoid flying for 4 weeks and dieting for 3 months. F/u CXR outpt. Pt Condition on Discharge: Good Discharge Disposition: Discharge Home Discharge Time: <= 30 minutes Discharge Instructions DIET: Follow Instructions for: Heart Healthy Diet Activities you can perform: Weight Bearing as Basia, See Additionl Instruction Other Activity Instructions: Avoid flying for 4 weeks and avoid diving for 3 months Pako Gamez MD May 28, 2017 14:57
--- NOTE | 2017-05-28 15:34 | PD.CAR.PN ---
CVT Progress Note Subjective/Hospital Course: 37/ male with admission for chest pain , SOB + spontaneous right pneumothorax/ no air leak noted in pleuravac, chest tube to water seal. . CT chest noted + bullous emphysema pt scheduled for right VATS , bleb resection and talc pleurodesis on Thursday 05/24 PMH: tobacco abuse surgery: Right thoracoscopic exploration, apical bleb resection, and mechanical pleurodesis 05/25 05/24 chest tube no air leak will place to water seal dc IV fluids continue pulm toileting add nebs ezpap acapella. pain control 05/26 cxr with no PTX , continue water seal recheck CXR in am , if no pTX then dc chest tube and possible dc home 05/27 chest tube removed without difficulty prior chest tube site evaluated / 2cm length 0.5cm deep wound iodafoam 1/2 inch gauze packing placed in wound recheck CXR and wound in am , if stable then ok to dc home 05/28 chest xray stable post chest tube removal has some iodofoam gauze packing right upper chest wall wound C to continue daily changes until healed ok to dc home Objective: GENERAL: SKIN: Warm and dry. dressing over wound right upper chest wall dressing over chest tube site interpreter: Normocephalic. EYES: No scleral icterus. No injection or drainage. NECK: Supple, trachea midline. No JVD or lymphadenopathy. CARDIOVASCULAR: Regular rate and rhythm without murmurs, gallops, or rubs. RESPIRATORY: Breath sounds equal bilaterally. No accessory muscle use. GASTROINTESTINAL: Abdomen soft, non-tender, nondistended. MUSCULOSKELETAL: No cyanosis, or edema. BACK: Nontender without obvious deformity. No CVA tenderness. Vital Signs Date Time Temp Pulse Resp B/P Pulse Ox O2 Delivery O2 Flow Rate FiO2 05/28/17 11:00 98.0 79 16 135/81 97 05/28/17 07:50 97 05/28/17 06:00 61 05/28/17 05:00 64 05/28/17 04:00 65 05/28/17 03:30 98.0 71 18 137/83 96 05/28/17 03:00 80 05/28/17 02:00 64 05/28/17 01:00 81 05/28/17 00:00 78 05/27/17 23:10 98.1 77 18 143/87 96 05/27/17 23:10 95 Room Air 05/27/17 23:00 82 05/27/17 22:00 78 05/27/17 21:00 80 05/27/17 20:00 74 05/27/17 19:50 95 Room Air 05/27/17 19:50 98.4 80 16 157/87 95 05/27/17 19:00 81 05/27/17 18:00 78 05/27/17 17:33 16 05/27/17 17:00 78 05/27/17 16:00 80 Result Diagram: 05/25/17 0455 05/25/17 0455 Telemetry: NSR (1) Tension pneumothorax, spontaneous Plan: cxr stable No PTX vaseline gauze dressing to site iodafoam gauze packing to right upper chest wall wound ( prior chest tube site / change daily unitl healed ok to dc home (2) Right thoracoscopic exploration, apical bleb resection, and mechanical pleuradesis Plan: pulm toileting nebs Pat Keller May 28, 2017 15:34
--- NOTE | 2017-06-03 11:34 | RSPPFT ---
DATE OF PROCEDURE: 05/20/17 COMMENTS: Spirometry demonstrates an FEV1 of 2.9 at 74% of predicted, FVC of 3.8 at 79%, FEF 25-75 is 57%. Flow volume loops are atypical and may suggest an obstructive pattern. IMPRESSION: 1. Mild to moderate obstructive disease. 2. Probable mild restrictive disease.
== END 2017-05-28 16:15 | disposition home or self-care (01) | DRG 164 ==
LOC: NEPD 19:00 → NEDA 21:16 → N06A 23:33 → HCIS 05-24 14:29 → HCIN 05-24 17:38
PROVIDERS: ADMIT Hospitalist; ATTEND Hospitalist
PROC: 0W9930Z Drainage of Right Pleural Cavity with Drainage Device, Percutaneous Approach (ICD-10-PCS; principal; 2017-05-19)
PROC: 0BBK4ZZ Excision of Right Lung, Percutaneous Endoscopic Approach (ICD-10-PCS; 2017-05-24)
PROC: 0B5N4ZZ Destruction of Right Pleura, Percutaneous Endoscopic Approach (ICD-10-PCS; 2017-05-24)
PROC: 0W9940Z Drainage of Right Pleural Cavity with Drainage Device, Percutaneous Endoscopic Approach (ICD-10-PCS; 2017-05-24)
DX: J93.0 Spontaneous tension pneumothorax (principal); D62 Acute posthemorrhagic anemia; J44.9 Chronic obstructive pulmonary disease, unspecified; I10 Essential (primary) hypertension; F17.210 Nicotine dependence, cigarettes, uncomplicated; L29.8 Other pruritus; T40.2X5A Adverse effect of other opioids, initial encounter
CPT/HCPCS: 32551; 71010; 71250; 80048; 80053; 81001; 82550; 82552; 83690; 83880; 84484; 85025; 85379; 85610; 85730; 86850; 86900; 86901; 87086; 87641; 88305; 93005; 94010; 94150; 94640; 94664; 94667; 94668; 96374; 96375; 96376; J0131; J0690; J1170; J1885; J2370; J2405; J2710; J3010; J3480

== ENCOUNTER 2017-12-31 21:31 | Emergency (ER) | payer OTHER ==
[~2017-12-31] VITALS: Ht 182.9 cm; Wt 90.0 kg
[~2017-12-31 21:31] MED LIST changes: +HYDR-3583 PO; -METH750T2 PO; +METO25TA3 PO; -NAPR40TA PO
[2017-12-31 21:53] VITALS: BP 157/93; PULSE 123; RESP 17; TEMP 97.6; O2SAT 94
[2017-12-31 22:29] LABS: AUTOMATED NEUTROPHIL # 2.9 TH/MM3 (1.8-7.7); BASOPHIL % 0.3 % (0.0-2.0); EOSINOPHIL # 0.1 TH/MM3 (0-0.4); EOSINOPHIL % 0.8 % (0.0-4.0); HEMATOCRIT 40.9 % (39.0-51.0); LYMPH % 53.8 % (9.0-44.0); MEAN CORPUSCULAR HEMOGLOBIN 34.5 PG (27.0-34.0); MEAN CORPUSCULAR HGB CONC 34.2 % (32.0-36.0); MEAN PLATELET VOLUME 7.4 FL (7.0-11.0); MONO % 6.5 % (0.0-8.0); MONOCYTE # 0.5 TH/MM3 (0-0.9); NEUT % 38.6 % (16.0-70.0); PLATELET COUNT 178 TH/MM3 (150-450); RED BLOOD COUNT 4.05 MIL/MM3 (4.50-5.90); WHITE BLOOD COUNT 7.5 TH/MM3 (4.0-11.0)
[2017-12-31 22:39] LABS: ALBUMIN 4.2 GM/DL (3.4-5.0); ALT (GPT) 34 U/L (12-78); AST (GOT) 39 U/L (15-37); BICARBONATE 23.9 MEQ/L (21.0-32.0); BLOOD UREA NITROGEN 7 MG/DL (7-18); CALCIUM 8.4 MG/DL (8.5-10.1); CHLORIDE 107 MEQ/L (98-107); GLOMERULAR FILTRATION RATE 101 ML/MIN (>89); GLUCOSE,RANDOM 111 MG/DL (74-106); SODIUM (NA) 141 MEQ/L (136-145)
[2017-12-31 22:43] LABS: ALKALINE PHOSPHATASE 67 U/L (45-117); TOTAL BILIRUBIN ADULT 0.3 MG/DL (0.2-1.0); TOTAL PROTEIN 8.8 GM/DL (6.4-8.2)
[2017-12-31] MEDS ORDERED: LORazepam 2 MG/ML VIAL IM ONE (23:00)
[2017-12-31] MEDS ORDERED: HALOPERIDOL LACTATE 5 MG/ML AMP IM ONE (23:00)
--- NOTE | 2017-12-31 23:03 | PD ---
HPI Chief Complaint: Psychiatric Symptoms Time Seen by Provider: 22:42 Travel History International Travel<30 days: No Contact w/Intl Traveler<30days: No Traveled to known affect area: No History of Present Illness HPI 37-year-old male presents to the emergency Department under [place] act by local police for suicidal ideation. According the Rec[place] act, the patient made threats to harm himself and cut his left wrist. He has superficial lacerations to the left wrist. Patient tells me that he is over at all and has thoughts of hurting himself. He is obviously intoxicated during my exam. The patient has been combative and not listening to staff. He became a harm to himself and others and was placed in locked restraints. The patient does answer my questions appropriately. He denies any medical complaints at this time. Moderate severity. Patient denies any history of drug use. Patient states his tetanus immunization is up-to-date. PFSH Past Medical History Asthma: No Autoimmune Disease: No Blood Disorders: No Bipolar Disorder: Yes Anxiety: Yes Depression: Yes Heart Rhythm Problems: No Cancer: No Cardiovascular Problems: Yes High Cholesterol: No Chemotherapy: No Chest Pain: No Congestive Heart Failure: No COPD: No Cerebrovascular Accident: No Diminished Hearing: No Endocrine: No Genitourinary: No Hypertension: Yes Immune Disorder: No Musculoskeletal: No Neurologic: Yes Psychiatric: Yes Reproductive: No Respiratory: Yes Immunizations Current: Yes Migraines: No Radiation Therapy: No Seizures: No Sickle Cell Disease: No Sleep Apnea: No Past Surgical History AICD: Yes Arteriovenous Shunt: No Insulin Pump: No Joint Replacement: No Pacemaker: No Other Surgery: No Social History Alcohol Use: Yes (daily) Tobacco Use: Yes (1/2 PPD) Substance Use: No Allergies-Medications (Allergen,Severity, Reaction): Coded Allergies: morphine (Unverified Allergy, Severe, HIVES, 12/31/17) Reported Meds & Prescriptions Reported Meds & Active Scripts Active Metoprolol Tartrate 25 Mg Tab 25 Mg PO Q12HR Hydrocodone-Acetaminophen 10-325 mg Tab 1 Tab PO Q6HR PRN No Active Prescriptions or Reported Medications Review of Systems Except as stated in HPI: all other systems reviewed are Neg Physical Exam Exam Limitations: Intoxication Narrative GENERAL: Well-nourished, well-developed male patient, afebrile. SKIN: Focused skin assessment warm/dry. Superficial abrasions noted to left wrist. HEAD: Normocephalic. Atraumatic. EYES: No scleral icterus. No injection or drainage. NECK: Supple, trachea midline. No JVD or lymphadenopathy. CARDIOVASCULAR: Regular rate and rhythm without murmurs, gallops, or rubs. RESPIRATORY: Breath sounds equal bilaterally. No accessory muscle use. Lungs sounds are clear to auscultation. GASTROINTESTINAL: Abdomen soft, non-tender, nondistended. MUSCULOSKELETAL: No cyanosis, or edema. BACK: Nontender without obvious deformity. No CVA tenderness. Data Data Last Documented VS Vital Signs Date Time Temp Pulse Resp B/P (MAP) Pulse Ox O2 Delivery O2 Flow Rate FiO2 12/31/17 21:53 97.6 123 17 157/93 (114) 94 Orders Orders Complete Blood Count With Diff (12/31/17 21:57) Comprehensive Metabolic Panel (12/31/17 21:57) Psych Screen (12/31/17 21:57) Drug Screen, Random Urine (12/31/17 21:57) Alcohol (Ethanol) (12/31/17 21:57) Haloperidol Inj (Haldol Inj) (12/31/17 23:00) Lorazepam Inj (Ativan Inj) (12/31/17 23:00) Restraints Violent (12/31/17 22:59) Labs Laboratory Tests Test 12/31/17 22:00 White Blood Count 7.5 TH/MM3 Red Blood Count 4.05 MIL/MM3 Hemoglobin 14.0 GM/DL Hematocrit 40.9 % Mean Corpuscular Volume 101.0 FL Mean Corpuscular Hemoglobin 34.5 PG Mean Corpuscular Hemoglobin Concent 34.2 % Red Cell Distribution Width 14.0 % Platelet Count 178 TH/MM3 Mean Platelet Volume 7.4 FL Neutrophils (%) (Auto) 38.6 % Lymphocytes (%) (Auto) 53.8 % Monocytes (%) (Auto) 6.5 % Eosinophils (%) (Auto) 0.8 % Basophils (%) (Auto) 0.3 % Neutrophils # (Auto) 2.9 TH/MM3 Lymphocytes # (Auto) 4.0 TH/MM3 Monocytes # (Auto) 0.5 TH/MM3 Eosinophils # (Auto) 0.1 TH/MM3 Basophils # (Auto) 0.0 TH/MM3 CBC Comment DIFF FINAL Differential Comment Blood Urea Nitrogen 7 MG/DL Creatinine 1.00 MG/DL Random Glucose 111 MG/DL Total Protein 8.8 GM/DL Albumin 4.2 GM/DL Calcium Level 8.4 MG/DL Alkaline Phosphatase 67 U/L Aspartate Amino Transf (AST/SGOT) 39 U/L Alanine Aminotransferase (ALT/SGPT) 34 U/L Total Bilirubin 0.3 MG/DL Sodium Level 141 MEQ/L Potassium Level 4.0 MEQ/L Chloride Level 107 MEQ/L Carbon Dioxide Level 23.9 MEQ/L Anion Gap 10 MEQ/L Estimat Glomerular Filtration Rate 101 ML/MIN Ethyl Alcohol Level 411 MG/DL [facility] Medical Decision Making Medical Screen Exam Complete: Yes Emergency Medical Condition: Yes Medical Record Reviewed: Yes Differential Diagnosis Alcohol intoxication versus depression versus anxiety versus bipolar disorder versus schizophrenia Narrative Course 37-year-old male presents to the emergency Department under [place] act for suicidal ideation. He is intoxicated and belligerent. Patient was placed in December restraints. CBC shows no acute abnormality. CMP shows no acute abnormality. Alcohol level is 411. Urine drug screen is pending. Patient is tachycardic on triage, most likely due to agitation. Patient is given Ativan 2 mg IM, Haldol 5 mg IM for agitation. [id number] exam completed at 2259. Patient demonstrates the need for violent restraints, demonstrating a risk of harming self and others. Restraints are noted in place. Distal extremities remain neurovascularly intact. Diagnosis Primary Impression: Alcohol-induced mood disorder Additional Impressions: Alcohol intoxication Qualified Codes: F10.920 - Alcohol use, unspecified with intoxication, uncomplicated Depression Qualified Codes: F32.9 - Major depressive disorder, single episode, unspecified Condition: Stable RylandViky Dec 31, 2017 23:03
[2018-01-01 08:17] VITALS: BP 119/79; PULSE 71; RESP 20; TEMP 98.2; O2SAT 100
[2018-01-01 11:00] VITALS: BP 108/77; PULSE 86; RESP 17; TEMP 97.8; O2SAT 99
[2018-01-01 14:00] VITALS: BP 121/66; PULSE 76; RESP 20; TEMP 99.5; O2SAT 96
--- NOTE | 2018-01-01 16:01 | PD ---
History of Present Illness Chief Complaint: Psychiatric Symptoms Time Seen by Provider: 15:05 Travel History International Travel<30 Days: No Contact w/Intl Traveler<30days: No Known affected area: No Legal Status Legal Status: Recinos Act Rec[place] Act Signed By: Frances Vazquez History of Present Illness: History of Present Illness HPI 37-year-old, , , homeless male with history of alcohol abuse and a remote history of depression who presents to the emergency Department under [place] act by local police. According the [place] act, the patient made threats to harm himself and cut his left wrist. He has superficial lacerations to the left wrist. The patient was intoxicated at the time that he made the superficial cuts and his blood alcohol level upon arrival to the ED was 411. The patient initially was combative and required restraints. He was allowed to sober up clinically and after he was sober he presented no behavioral dysregulation and no suicidality. Electronic medical record reviewed. The patient's first contact with psychiatry was in 2008. At that time he was placed under a [place] act after he took several asked Advil as a suicidal gesture in context of alcohol intoxication. In 2011 he has another visit to the ED also for depression and suicidal gesture by taking 7 lithium pills. This was also in context of alcohol use. His last evaluation was in February 2017 where he was placed under [place] act also while in context of alcohol use. The patient is seen this afternoon. Rivka Stoddard RN is present for part of the interview. The patient is clinically sober now. There is no tremors noted. The patient's speech is clear and logical and of normal rate and tone. His gait is steady. Adequate amount of eye contact. The patient does not present any evidence of any psychosis, no abbey or hypomania. He is currently denying any suicidal or homicidal ideation, intent or plan. And states "I'm good. I'm okay. I need to be discharge because I have to be at tomorrow." The patient is minimizing his alcohol use and tells me that he does not drink on a daily basis. He is denying any symptom of depression at this time although he does report he feels sad because his older children which are 22 years and 21 years are no longer living with them, his 15 year-old will be going to football camp and his 6-year-old will be going with the grandmother for the summer. The patient also has recently from his and states that now he is living on the streets. When asked about her future orientation he tells me I need to be at work tomorrow and I need to be at work on Wednesday. The remainder of psychiatric review of systems is negative [facility] Past Medical History Asthma: No Autoimmune Disease: No Blood Disorders: No Bipolar Disorder: Yes Anxiety: Yes Depression: Yes Heart Rhythm Problems: No Cancer: No Cardiovascular Problems: Yes High Cholesterol: No Chemotherapy: No Chest Pain: No Congestive Heart Failure: No COPD: No Cerebrovascular Accident: No Diminished Hearing: No Endocrine: No Genitourinary: No Hypertension: Yes Immune Disorder: No Musculoskeletal: No Neurologic: Yes Psychiatric: Yes Reproductive: No Respiratory: Yes Immunizations Current: Yes Migraines: No Radiation Therapy: No Seizures: No Sickle Cell Disease: No Sleep Apnea: No Past Surgical History AICD: Yes Arteriovenous Shunt: No Insulin Pump: No Joint Replacement: No Pacemaker: No Other Surgery: No Psychiatric History Psychiatric History Hx Psychiatric Treatment: Has had several ED visits for alcohol related issues. Has had outpatient treatment at [facility] but has not taken medication in over a year. Has had several suicidal gestures in the past. History of Inpatient Treatment: Yes Guns or firearms in home: No Social History , currently , living on the streets. Works at [employer]. Has 4 children. Hx Alcohol Use: Yes (daily) Hx Tobacco Use: Yes (1/2 PPD) Hx Substance Use: No Substance Use Type: Alcohol Hx of Substance Use Treatment: Yes (currently minimizes his use of substances) Family Psychiatric History Negative Allergies-Medications (Allergen,Severity, Reaction): Coded Allergies: morphine (Unverified Allergy, Severe, HIVES, 12/31/17) Reported Meds & Prescriptions Reported Meds & Active Scripts Active Metoprolol Tartrate 25 Mg Tab 25 Mg PO Q12HR Hydrocodone-Acetaminophen 10-325 mg Tab 1 Tab PO Q6HR PRN No Active Prescriptions or Reported Medications Mental Status Examination Appearance: Disheveled Consciousness: Alert Orientation: x4 Motor Activity: Normal gait Speech: Unremarkable Language: Adequate Fund of Knowledge: Adequate Attention and Concentration: Adequate Memory: Unremarkable Mood: Appropriate Affect: Appropriate Thought Process & Associations: Intact, Logical, Goal directed Thought Content: Appropriate Hallucination Type: None Delusion Type: None Suicidal Ideation: No Suicidal Plan: No Suicidal Intention: No Homicidal Ideation: No Homicidal Plan: No Homicidal Intention: No Insight: Fair Judgment: Adequate [facility] Medical Decision Making Medical Record Reviewed: Yes Assessment/Plan 37-year-old, , , homeless male with history of alcohol abuse and a remote history of depression who presents to the emergency Department under [place] act by local police after he self-inflicted superficial cuts to his wrist in context of alcohol intoxication. The patient initially was combative and required restraints but after he sobered up he presented no behavioral concerns. The patient at this time is requesting to be discharge. He minimizes his alcohol use. He denies any suicidal or homicidal ideation, intent or plan. He is future oriented and is concerned about missing work tomorrow. The patient is cognitively intact. He contracts for safety as a general safety plan and agrees to return to the ED if any changes or concerns. He is encouraged to follow up with Kenji Walker for substance abuse but he does not feel he has an issue. Patient at this time does not meet criteria for Recinos act and it will be lifted. Psychiatric clear for discharge from ED. Orders Orders Complete Blood Count With Diff (12/31/17 21:57) Comprehensive Metabolic Panel (12/31/17 21:57) Psych Screen (12/31/17 21:57) Drug Screen, Random Urine (12/31/17 21:57) Alcohol (Ethanol) (12/31/17 21:57) Haloperidol Inj (Haldol Inj) (12/31/17 23:00) Lorazepam Inj (Ativan Inj) (12/31/17 23:00) Restraints Violent (12/31/17 22:59) Diet Regular Basic (01/01/18 Breakfast) Diet Regular Basic (01/01/18 Dinner) Results Vital Signs Date Time Temp Pulse Resp B/P (MAP) Pulse Ox O2 Delivery O2 Flow Rate FiO2 01/01/18 14:00 99.5 76 20 121/66 (84) 96 Room Air 01/01/18 11:00 97.8 86 17 108/77 (87) 99 Room Air 01/01/18 08:17 98.2 71 20 119/79 (92) 100 Room Air 01/01/18 08:17 62 19 12/31/17 21:53 97.6 123 17 157/93 (114) 94 Laboratory Tests Test 12/31/17 22:00 12/31/17 22:30 White Blood Count 7.5 Red Blood Count 4.05 Hemoglobin 14.0 Hematocrit 40.9 Mean Corpuscular Volume 101.0 Mean Corpuscular Hemoglobin 34.5 Mean Corpuscular Hemoglobin Concent 34.2 Red Cell Distribution Width 14.0 Platelet Count 178 Mean Platelet Volume 7.4 Neutrophils (%) (Auto) 38.6 Lymphocytes (%) (Auto) 53.8 Monocytes (%) (Auto) 6.5 Eosinophils (%) (Auto) 0.8 Basophils (%) (Auto) 0.3 Neutrophils # (Auto) 2.9 Lymphocytes # (Auto) 4.0 Monocytes # (Auto) 0.5 Eosinophils # (Auto) 0.1 Basophils # (Auto) 0.0 CBC Comment DIFF FINAL Differential Comment Blood Urea Nitrogen 7 Creatinine 1.00 Random Glucose 111 Total Protein 8.8 Albumin 4.2 Calcium Level 8.4 Alkaline Phosphatase 67 Aspartate Amino Transf (AST/SGOT) 39 Alanine Aminotransferase (ALT/SGPT) 34 Total Bilirubin 0.3 Sodium Level 141 Potassium Level 4.0 Chloride Level 107 Carbon Dioxide Level 23.9 Anion Gap 10 Estimat Glomerular Filtration Rate 101 Ethyl Alcohol Level 411 Urine Opiates Screen NEG Urine Barbiturates Screen NEG Urine Amphetamines Screen NEG Urine Benzodiazepines Screen NEG Urine Cocaine Screen NEG Urine Cannabinoids Screen NEG Diagnosis Primary Impression: Alcohol intoxication Additional Impression: Alcohol-induced mood disorder Psychiatrically Cleared: Yes Med/ Other Pt Specific Info: No Meds Exist/No RX given Disposition: 01 DISCHARGE HOME Condition: Stable Problem Qualifiers Primary Impression: Alcohol intoxication Qualified Codes: F10.920 - Alcohol use, unspecified with intoxication, uncomplicated Emi Gresham [facility] Jan 01, 2018 16:01
--- NOTE | 2018-01-01 16:08 | PD ---
Physical Exam Time Seen by Provider: 16:04 Narrative Please refer to previous providers documentation for details on the patient's current visit. Data Data Last Documented VS Vital Signs Date Time Temp Pulse Resp B/P (MAP) Pulse Ox O2 Delivery O2 Flow Rate FiO2 01/01/18 14:00 99.5 76 20 121/66 (84) 96 Room Air Orders Orders Complete Blood Count With Diff (12/31/17 21:57) Comprehensive Metabolic Panel (12/31/17 21:57) Psych Screen (12/31/17 21:57) Drug Screen, Random Urine (12/31/17 21:57) Alcohol (Ethanol) (12/31/17 21:57) Haloperidol Inj (Haldol Inj) (12/31/17 23:00) Lorazepam Inj (Ativan Inj) (12/31/17 23:00) Restraints Violent (12/31/17 22:59) Diet Regular Basic (01/01/18 Breakfast) Diet Regular Basic (01/01/18 Dinner) Ed Discharge Order (01/01/18 16:03) Labs Laboratory Tests Test 12/31/17 22:00 12/31/17 22:30 White Blood Count 7.5 TH/MM3 Red Blood Count 4.05 MIL/MM3 Hemoglobin 14.0 GM/DL Hematocrit 40.9 % Mean Corpuscular Volume 101.0 FL Mean Corpuscular Hemoglobin 34.5 PG Mean Corpuscular Hemoglobin Concent 34.2 % Red Cell Distribution Width 14.0 % Platelet Count 178 TH/MM3 Mean Platelet Volume 7.4 FL Neutrophils (%) (Auto) 38.6 % Lymphocytes (%) (Auto) 53.8 % Monocytes (%) (Auto) 6.5 % Eosinophils (%) (Auto) 0.8 % Basophils (%) (Auto) 0.3 % Neutrophils # (Auto) 2.9 TH/MM3 Lymphocytes # (Auto) 4.0 TH/MM3 Monocytes # (Auto) 0.5 TH/MM3 Eosinophils # (Auto) 0.1 TH/MM3 Basophils # (Auto) 0.0 TH/MM3 CBC Comment DIFF FINAL Differential Comment Blood Urea Nitrogen 7 MG/DL Creatinine 1.00 MG/DL Random Glucose 111 MG/DL Total Protein 8.8 GM/DL Albumin 4.2 GM/DL Calcium Level 8.4 MG/DL Alkaline Phosphatase 67 U/L Aspartate Amino Transf (AST/SGOT) 39 U/L Alanine Aminotransferase (ALT/SGPT) 34 U/L Total Bilirubin 0.3 MG/DL Sodium Level 141 MEQ/L Potassium Level 4.0 MEQ/L Chloride Level 107 MEQ/L Carbon Dioxide Level 23.9 MEQ/L Anion Gap 10 MEQ/L Estimat Glomerular Filtration Rate 101 ML/MIN Ethyl Alcohol Level 411 MG/DL Urine Opiates Screen NEG Urine Barbiturates Screen NEG Urine Amphetamines Screen NEG Urine Benzodiazepines Screen NEG Urine Cocaine Screen NEG Urine Cannabinoids Screen NEG MDM Medical Record Reviewed: Yes Supervised Visit with RICHARD: No Narrative Course 37-year-old male presents emergency department under Rec[place] act. Patient has been medically cleared, seen and evaluated by psychiatry and Recinos act has been lifted. With no further medical needs, patient will be discharged at this time. Diagnosis Primary Impression: Alcohol intoxication Qualified Codes: F10.920 - Alcohol use, unspecified with intoxication, uncomplicated Additional Impression: Alcohol-induced mood disorder Disposition: 01 DISCHARGE HOME Condition: Stable Bina Aquino Jan 01, 2018 16:08
== END 2018-01-01 16:52 | disposition home or self-care (01) ==
LOC: NEDAMB 21:31 → NEPJ 01-01 16:52
DX: F10.94 Alcohol use, unspecified with alcohol-induced mood disorder (principal); S60.812A Abrasion of left wrist, initial encounter; F31.9 Bipolar disorder, unspecified; F41.9 Anxiety disorder, unspecified; I10 Essential (primary) hypertension; F17.200 Nicotine dependence, unspecified, uncomplicated; Z59.0 Homelessness; Z78.1 Physical restraint status; X78.8XXA Intentional self-harm by other sharp object, initial encounter
CPT/HCPCS: 80053; 80307; 85025; 96372; 99285; J1630; J2060